=== PATIENT | female | born 1985 | race Two or more races ===

== ENCOUNTER → 2021-07-14 | Outpatient (CLI) | payer BC, MEDICAID, SELFPAY ==
[2021-07-17 09:01] LABS: HPV APTIMA, High Risk Negative (Negative)
== END | disposition home or self-care (01) ==
LOC: LABSPEC 11:37
PROVIDERS: Visit Provider Obstetrics & Gynecology
DX: Z12.4 Encounter for screening for malignant neoplasm of cervix (principal)
CPT/HCPCS: 87624; 88175; G0145

== ENCOUNTER → 2023-05-19 | Outpatient (CLI) | payer BC, MEDICAID, SELFPAY ==
[2023-05-19 12:35] LABS: Hematocrit 40.8 % (37-47); Hemoglobin 12.9 g/dL (12.0-15.0); Mean Corp Hgb Conc 31.6 g/dL (32-36); Mean Corpuscular Volume 88.5 fL (81-99); Mean Platelet Vol. 10.5 fl (6.2-12.0); Platelet Count 289 K/mm3 (150-450); RBC Distribution Width CV 12.9 % (11.6-14.6); RBC Distribution Width SD 41.9 fl (35.1-43.9); Red Blood Count 4.61 M/mm3 (4.2-5.4); White Blood Count 10.2 K/mm3 (4.4-11.0)
[2023-05-19 12:53] LABS: Progesterone Level 0.28 ng/mL (See Comment)
[2023-05-19 14:09] LABS: Estradiol 137.6 pg/mL; Follicle Stimulating Hormone 11.5 mIU/mL; Prolactin 4.6 ng/mL; T4 Free Direct 1.07 ng/dL (0.76-1.46); Thyroid Stim Hormone (TSH) 1.77 uIU/mL (0.358-3.74)
== END | disposition home or self-care (01) ==
PROVIDERS: Visit Provider Student in an Organized Health Care Education/Training Program
DX: N93.9 Abnormal uterine and vaginal bleeding, unspecified (principal)
CPT/HCPCS: 36415; 82670; 83001; 83002; 83036; 84144; 84146; 84439; 84443; 85027

== ENCOUNTER → 2023-10-05 | Outpatient (CLI) | payer BC, MEDICAID, SELFPAY ==
--- OUTSIDE RECORDS SUMMARY | 2023-10-05 17:42 | XMS RPT_ITS | CCD ---
Author Name Unknown Address [address] [place] [address] Organization [facility] Care Team Providers Care Pyridine Operator Name Role Phone NO FAMILY DOCTOR, NO FAMILY DOCTOR Unavailable Unavailable ESTEFANI AYOUB Unavailable Unavailable Nella PACE, Monae Primary Care Provider Monae Carmen MD Primary Care Provider Monae Carmen MD Primary Care Provider Monae Carmen MD Primary Care Provider OLDER, TEETEE Referring Unavailable GANTA, MONAE Primary Care Unavailable OLDER, TEETEE Attending Unavailable GANTA, MONAE Primary Care Unavailable GANTA, MONAE Primary Care Unavailable GANTA, MONAE Primary Care Unavailable JOSE DANIEL BESS Attending Unavailable GANTA, MONAE Primary Care Unavailable GANTA, MONAE Primary Care Unavailable OLDER, TEETEE Referring Unavailable GANTA, MONAE Primary Care Unavailable Medications Current Medications Medication Drug Class(es) Dates Sig (Normalized) Sig (Original) nitrofurantoin, macrocrystals 25 mg / nitrofurantoin, monohydrate 75 mg oral capsule (4 sources) Nitrofuran Antibacterial Start: 01-24-2023 End: 01-29-2023 take 1 capsule by mouth twice daily nitrofurantoin monohydrate and macrocrystal (MACROBID) 100 mg capsule Take 1 capsule by mouth twice daily for 5 days. 10 capsule 0 01/24/2023 01/29/2023 Active Completed/Discontinued Medications Medication Drug Class(es) Dates Sig (Normalized) Sig (Original) ferrous sulfate 325 mg oral tablet (7 sources) Start: 04-01-2022 End: 03-26-2023 take 1 tablet by mouth once daily at breakfast ferrous sulfate 325 mg (65 mg iron) tablet Take 1 tablet by mouth daily with breakfast. 30 tablet 5 03/26/2023 03/26/2023 Discontinued Problems Active Problems Problem Classification Problem Date Documented Da te Episodic/Chronic Conditions associated with dizziness or vertigo (3 sources) Dizziness and giddiness; Translations: [Vertigo] Onset: 09-29-2017 Episodic Conditions associated with dizziness or vertigo (1 source) Conditions associated with dizziness or vertigo Onset: 09-29-2017 Deficiency and other anemia (2 sources) Anemia; Translations: [Anemia, unspecified] Episodic Diabetes or abnormal glucose tolerance complicating ; childbirth; or the puerperium (11 sources) Pre-existing type 2 diabetes mellitus in ; Translations: [Pre-existing type 2 diabetes mellitus, in , third trimester] Onset: 07-28-2018 01-27-2019 Chronic Genitourinary symptoms and ill-defined conditions (1 source) Scalding pain on urination ; Translations: [Dysuria] Episodic Headache; including migraine (1 source) Headache; Translations: [Intractable headache, unspecified chronicity pattern, unspecified headache type] Episodic Menstrual disorders (2 sources) Missed period; Translations: [Irregular menstruation, unspecified] Onset: 03-29-2023 Chronic Neoplasms of unspecified nature or uncertain behavior (1 source) Neoplastic disease; Translations: [Neoplasm of unspecified behavior of bone, soft tissue, and skin] Episodic Other and unspecified benign neoplasm (1 source) Melanocytic nevus of skin ; Translations: [Melanocytic nevi, unspecified] Episodic Other connective tissue disease (2 sources) Pain in bilateral legs; Translations: [Pain in right leg] Episodic Other connective tissue disease (1 source) Tendinosis; Translations: [Other specified disorders of synovium and tendon, unspecified site] 04-01-2023 Episodic Other hematologic conditions (1 source) H/O: anemia - iron deficient; Translations: [Personal history of diseases of the blood and blood-forming organs and certain disorders involving the immune mechanism] Episodic Other lower respiratory disease (1 source) Snoring; Translations: [Snoring] Episodic Other nervous system disorders (1 source) Other chronic pain; Translations: [Chronic midline low back pain, unspecified whether sciatica present] Onset: 03-29-2023 Chronic Other non-traumatic joint disorders (2 sources) Hip pain; Translations: [Pain in right hip] Episodic Other nutritional; endocrine; and metabolic disorders (11 sources) Body mass index 40+ - severely obese; Translations: [Body mass index (BMI) 40.0-44.9, adult] Onset: 03-07-2019 03-07-2019 Chronic Residual codes; unclassified (1 source) Reduced libido; Translations: [Decreased libido] Episodic Spondylosis; intervertebral disc disorders; other back problems (1 source) Chronic low back pain; Translations: [Chronic midline low back pain, unspecified whether sciatica present] Episodic Unclassified (1 source) Oth related conditions, first trimester / O26.891(ICD-9) Onset: 09-29-2017 Unclassified (1 source) Complete or unsp spontaneous without complication / O03.9(ICD-9) Onset: 09-29-2017 Unclassified (1 source) 8 weeks gestation of / Z3A.08(ICD-9) Onset: 09-29-2017 Unclassified (1 source) Smoking (tobacco) complicating , first trimester / O99.331(ICD-9) Onset: 09-29-2017 Unclassified (1 source) Chronic midline low back pain, unspecified whether sciatica present; Translations: [Chronic midline low back pain, unspecified whether sciatica present] Onset: 03-29-2023 Urinary tract infections (2 sources) Acute cystitis; Translations: [Acute cystitis with hematuria] Episodic Past or Other Problems Problem Classification Problem Date Documented Da te Episodic/Chronic Diabetes mellitus without complication (3 sources) Prediabetes; Translations: [Prediabetes] Onset: 03-29-2023 Episodic Other connective tissue disease (1 source) Pain in right leg; Translations: [Bilateral leg pain] Onset: 03-29-2023 Episodic Other connective tissue disease (1 source) Pain in left leg; Translations: [Bilateral leg pain] Onset: 03-29-2023 Episodic Other hematologic conditions (1 source) Personal history of diseases of the blood and blood-forming organs and certain disorders involving the immune mechanism; Translations: [History of iron deficiency anemia] Onset: 03-29-2023 Episodic Other non-traumatic joint disorders (1 source) Pain in right hip; Translations: [Bilateral hip pain] Onset: 03-29-2023 Episodic Other non-traumatic joint disorders (1 source) Pain in left hip; Translations: [Bilateral hip pain] Onset: 03-29-2023 Episodic Other screening for suspected conditions (not mental disorders or infectious disease) (3 sources) Patient encounter status; Translations: [Encounter for screening for lipoid disorders] Onset: 03-29-2023 Episodic Residual codes; unclassified (1 source) Decreased libido; Translations: [Decreased libido] Onset: 03-29-2023 Episodic Unclassified (1 source) Oth related conditions, first trimester; Translations: [Oth related conditions, first trimester] Onset: 09-29-2017 Results Test Name Value Interpretation Reference Range Facil ity Vital Signs Date Time Vital Sign Value Performing Clinician Faci lity 03-26-2023 10:21-0400 Body weight 107.5 kg Teetee Older SOFTBALL PLAYER.SUPERVISOR HEAT TREATING Work Phone: [facility] 03-26-2023 10:21-0400 Diastolic blood pressure 82 mm[Hg] Teetee Older SOFTBALL PLAYER.SUPERVISOR HEAT TREATING Work Phone: [facility] 03-26-2023 10:21-0400 Heart rate 68 /min Teetee Older SOFTBALL PLAYER.SUPERVISOR HEAT TREATING Work Phone: [facility] 03-26-2023 10:21-0400 Respiratory rate 16 /min Teetee Older SOFTBALL PLAYER.SUPERVISOR HEAT TREATING Work Phone: [facility] 03-26-2023 10:21-0400 Systolic blood pressure 128 mm[Hg] Teetee Older SOFTBALL PLAYER.SUPERVISOR HEAT TREATING Work Phone: [facility] 01-24-2023 13:44-0400 Body temperature 98.01 [degF] Krislyn Aberegg PA Work Phone: [facility] 01-24-2023 13:44-0400 Body weight 108.41 kg Krislyn Aberegg PA Work Phone: [facility] 01-24-2023 13:44-0400 Diastolic blood pressure 68 mm[Hg] Krislyn Aberegg PA Work Phone: [facility] 01-24-2023 13:44-0400 Heart rate 80 /min Krislyn Aberegg PA Work Phone: [facility] 01-24-2023 13:44-0400 Respiratory rate 16 /min Krislyn Aberegg PA Work Phone: [facility] 01-24-2023 13:44-0400 SaO2% (BldA) [Mass fraction] 98 % Krislyn Aberegg PA Work Phone: [facility] 01-24-2023 13:44-0400 Systolic blood pressure 122 mm[Hg] Krislyn Aberegg PA Work Phone: [facility] 04-01-2022 11:05-0400 Body weight 103.87 kg Teetee Older SOFTBALL PLAYER.SUPERVISOR HEAT TREATING Work Phone: [facility] 04-01-2022 11:05-0400 Diastolic blood pressure 80 mm[Hg] Teetee Older SOFTBALL PLAYER.SUPERVISOR HEAT TREATING Work Phone: [facility] 04-01-2022 11:05-0400 Heart rate 68 /min Teetee Older SOFTBALL PLAYER.SUPERVISOR HEAT TREATING Work Phone: [facility] 04-01-2022 11:05-0400 Respiratory rate 16 /min Teetee Older SOFTBALL PLAYER.SUPERVISOR HEAT TREATING Work Phone: [facility] 04-01-2022 11:05-0400 Systolic blood pressure 120 mm[Hg] Teetee Older SOFTBALL PLAYER.SUPERVISOR HEAT TREATING Work Phone: [facility] 02-20-2022 09:20-0400 Body weight 104.78 kg Teetee Older SOFTBALL PLAYER.SUPERVISOR HEAT TREATING Work Phone: [facility] 02-20-2022 09:20-0400 Diastolic blood pressure 80 mm[Hg] Teetee Older SOFTBALL PLAYER.SUPERVISOR HEAT TREATING Work Phone: [facility] 02-20-2022 09:20-0400 Heart rate 68 /min Teetee Older SOFTBALL PLAYER.SUPERVISOR HEAT TREATING Work Phone: [facility] 02-20-2022 09:20-0400 Respiratory rate 16 /min Teetee Older SOFTBALL PLAYER.SUPERVISOR HEAT TREATING Work Phone: [facility] 02-20-2022 09:20-0400 Systolic blood pressure 128 mm[Hg] Teetee Older SOFTBALL PLAYER.SUPERVISOR HEAT TREATING Work Phone: [facility] 01-11-2022 11:18-0400 Body temperature 97.59 [degF] Karen Athy PA-C Work Phone: [facility] 01-11-2022 11:18-0400 Body weight 105.6 kg Karen Athy PA-C Work Phone: [facility] 01-11-2022 11:18-0400 Diastolic blood pressure 60 mm[Hg] Karen Athy PA-C Work Phone: [facility] 01-11-2022 11:18-0400 Heart rate 85 /min Karen Athy PA-C Work Phone: [facility] 01-11-2022 11:18-0400 Respiratory rate 16 /min Karen Athy PA-C Work Phone: [facility] 01-11-2022 11:18-0400 SaO2% (BldA) [Mass fraction] 99 % Karen Athy PA-C Work Phone: [facility] 01-11-2022 11:18-0400 Systolic blood pressure 118 mm[Hg] Karen Athy PA-C Work Phone: [facility] Encounters Encounter Date Encounter Type Care Provider Facility Start: 09-30-2023 End: 09-30-2023 ambulatory [facility] Facility:[facility] Start: 09-16-2023 End: 09-16-2023 ambulatory JOSE DANIEL BESS Facility:[facility] Start: 09-14-2023 End: 09-14-2023 ambulatory [facility] Facility:[facility] Start: 04-01-2023 Telephone encounter Teetee Narayan APRN.SUPERVISOR HEAT TREATING Work Phone: [facility] Procedures Date Procedure Procedure Detail Performing Clinician Start: 03-26-2023 Urine test visual color cmprsn meths Teetee Narayan SOFTBALL PLAYER.SUPERVISOR HEAT TREATING Work Phone: Start: 03-26-2023 Hemoglobin A1c/Hemoglobin.total in Blood Teetee Narayan SOFTBALL PLAYER.SUPERVISOR HEAT TREATING Work Phone: Start: 01-24-2023 Urnls dip stick/tabl et rgnt auto w/o microscopy Karen Ash PA-C Work Phone: Start: 09-29-2022 SKIN / NAIL BIOPSY Crista Hu PA-C Work Phone: Start: 02-20-2022 Adult depression screening assessment Teetee Helene HALEYSUPERVISOR HEAT TREATING Work Phone: Start: 01-11-2022 Urnls dip stick/tabl et rgnt auto w/o microscopy Karen Ash PA-C Work Phone: Start: 01-13-2021 Adult depression screening assessment Karen Ash PA-C Work Phone: Start: 01-25-2019 H/O: section Previous section Karen Ash PA-C Work Phone: Start: 01-25-2019 Antibody screen Plan of Treatment Date Care Activity Detail Author Start: 11-23-2028 Urine microalbumin profile DTA P,TDAP,TD (2 - Td or Tdap) [facility] Start: 03-26-2024 COVID-19 VACCINE (#1) COVID-19 VACCI NE (#1) [facility] Immunizations Immunization Date Immunization Notes Care Provider Ebony germain 01-27-2019 measles, mumps and rubella virus vaccine Karen Ash PA-C Work Phone: [facility] 11-23-2018 tetanus toxoid, redu bi diphtheria toxoid, and acellular pertussis vaccine, adsorbed Karen Ash PA-C Work Phone: [facility] 06-17-2018 influenza, injectabl e, quadrivalent, preservative free Karen Ash PA-C Work Phone: [facility] Payers Date Payer Category Payer Medicaid [id number] 2022 Unknown [id number] 2021 Unknown YAN HERBERT PPO [id number] 2021-Present [phone] [address] [place] [address] PPO [id number] 2021 Unknown YAN HERBERT PPO [id number] 2021-Present [phone] [address] [place] [address] PPO [id number] 2021 Unknown [id number] 2021 Unknown [id number] 2018 Medicaid [employer] [id number] 2018-Present [phone] [address] [place] [address] Medicaid [id number] 2018 Medicaid [id number] Social History Date Type Detail Facility Start: 03-08-2020 End: 01-24-2023 Tobacco smoking status NHIS Smokes tobacco daily [facility] End: 05-21-2018 History of tobacco use Cigarette Smoker [facility] Start: 03-08-2020 End: 03-24-2023 Cigarettes smoked current (pack per day) - Reported 5 [facility] Start: 03-08-2020 End: 01-24-2023 Tobacco use and exposure Smokeless tobacco non-user [facility] Start: 01-11-2022 End: 01-24-2023 Alcohol intake Current non-drinker of alcohol (finding) [facility] Start: 01-13-2021 End: 03-25-2023 History SDOH Alcohol Frequency 2 [facility] Start: 01-13-2021 End: 03-25-2023 History SDOH Alcohol Binge 1 [facility] Start: 01-13-2021 End: 03-25-2023 History SDOH Social Connections Phone 5 [facility] Start: 01-13-2021 End: 03-25-2023 History SDOH Social Connections Living 3 [facility] Start: 01-13-2021 End: 03-25-2023 History SDOH Physical Activity MPS 6 [facility] Start: 01-13-2021 End: 03-25-2023 History SDOH Financial 4 [facility] Start: 01-13-2021 Education 21 [facility] Start: 03-08-2020 End: 01-24-2023 Tobacco Comment 0.5 [facility] Start: 1985 Sex Assigned At Female [facility] Start: 03-30-2022 History SDOH Alcohol Std Drinks 98 [facility] Start: 03-24-2023 End: 03-26-2023 Social connection and isolation panel [facility] Do you belong to any clubs or organizations such as roman catholic groups, unions, fraternal or athletic groups, or school groups? No [facility] Are you now , , , , never or living with a partner? [facility] How often to you hav e a drink containing alcohol? Monthly or less [facility] How many standard dr inks containing alcohol do you have on a typical day? 3 or 4 [facility] How often do you hav e 6 or more drinks on 1 occasion? Never [facility] How hard is it for y ou to pay for the very basics like food, housing, medical care, and heating Not very hard [facility] Adult Depression Screening Assessment 0 [facility] Work Phone: Do you feel stress - tense, restless, nervous, or anxious, or unable to sleep at night because your mind is troubled all the time - these days [OSQ] Only a little [facility] (I/We) worried wheth er (my/our) food would run out before (I/we) got money to buy more. Never true [facility] The food that (I/we) bought just didn't last, and (I/we) didn't have money to get more. Sometimes true [facility] Start: 01-13-2021 Gender identity Identifies as female gender (finding) [facility] Start: 01-13-2021 Sexual orientation Heterosexual (finding) [facility] Clinical Notes 10-25-2018 to 09-30-2023 Telephone Encounter - Teetee Narayan APRN.SUPERVISOR HEAT TREATING - 04/01/2023 3:36 PM EDTTelephone Encounter - Raquel Bunn Ma - 04/01/2023 3:32 PM EDTTelephone Encounter - Teetee Narayan APRN.CNP - 04/01/2023 3:25 PM EDT Note Date & Type Note Facility 09-30-2023 Note HNO ID: [id number] Author: REN SHABAZZ APRN.CALIN Service: ? Author Type: Nurse Practitioner Type: Progress Notes Filed: 09/30/2023 09:51 Note Text: This note was created using NoteWriter. Subjective Quin Patiño is a 38 year old female. 38 year old female with no PMH presents for illness. Acute onset 1 1/2 weeks ago Seen here 09/14/23 Negative strep Placed on Augmentin F/U on 09/16 with MANAGER CHINESE - Shahriar Endorses she felt better Pain resolved Endorses 2 days ago sx returned +sore throat +right ear pain Denies accompanying URI sx + cough, feels like there is something there and can't get anything up +pain and aches at baseline Denies fever or chills Denies N/V/D Denies skin rash or lesions. Has used Tylenol +tobacco smoker The history is provided by the patient. No government clerk was used. Sore Throat This is a new problem. The current episode started 1 to 4 weeks ago. The problem has been unchanged. There has been no fever. The pain is at a severity of 5/10. The pain is moderate. Associated symptoms include ear pain and headaches. Pertinent negatives include no abdominal pain, congestion, coughing, diarrhea, drooling, ear discharge, hoarse voice, plugged ear sensation, neck pain, shortness of breath, stridor, swollen glands, trouble swallowing or vomiting. She has had no exposure to strep or mono. She has tried nothing for the symptoms. The treatment provided no relief. PAST MEDICAL HISTORY Diagnosis Date Anemia Diabetes, gestational WITH 3 PREVIOUS PREGNANCIES PAST SURGICAL HISTORY Procedure Laterality Date DEL W/ ANTE/POST CARE 2006 DEL W/ ANTE/POST CARE 2008 DEL W/ ANTE/POST CARE DEL W/ ANTE/POST CARE 01/25/2019 DILATION AND CURETTAGE DXAND/THER NONOBSTETRIC 03/2013 Dilation AND curettage EXTRACTION, ERUPTED TOOTH OR EXPOSED ROOT (ELEVATION AND/OR FORCEPS REMOVAL) 2012 TUBAL LIGATION, 01/25/2019 ALLERGIES Patient has no known allergies. MEDICATIONS predniSONE (DELTASONE) 10 mg tablet Take 4 tabs daily for 3 days, then 2 tabs daily for 3 days, then 1 tab daily for 3 days with food. famotidine (PEPCID) 20 mg tablet Take 1 tablet by mouth at bedtime as needed. fluticasone (FLONASE) 50 mcg/actuation nasal spray Use 2 Sprays in each nostril once daily. Rinse mouth after use. FAMILY HISTORY Problem Relation Age of Onset Diabetes Father Cancer Sister FILTER SCREEN CLEANER 36 Diabetes Maternal Grandfather Hypertension Maternal Grandfather Colon Cancer Other diagnosed in 30-40s. unclear on type of cancer Social History Tobacco Use Smoking status: Every Day Packs/day: 5 Types: Cigarettes Last attempt to quit: 05/21/2018 Years since quittin.3 Smokeless tobacco: Never Tobacco comments: 0.5 Vaping Use Vaping Use: Never used Substance Use Topics Alcohol use: No Drug use: No Review of Systems Constitutional: Negative for activity change and appetite change. HENT: Positive for ear pain and sore throat. Negative for congestion, drooling, ear discharge, hoarse voice, sinus pressure, sinus pain and trouble swallowing. Eyes: Negative for photophobia, pain, discharge, redness, itching and visual disturbance. Respiratory: Negative for apnea, cough, chest tightness, shortness of breath and stridor. Cardiovascular: Negative for chest pain, palpitations and leg swelling. Gastrointestinal: Negative for abdominal pain, diarrhea, nausea and vomiting. Musculoskeletal: Negative for arthralgias, back pain and neck pain. Skin: Negative for color change, pallor, rash and wound. Allergic/Immunologic: Negative for environmental allergies, food allergies and immunocompromised state. Neurological: Positive for headaches. Negative for dizziness and facial asymmetry. Hematological: Negative for adenopathy. Does not bruise/bleed easily. Psychiatric/Behavioral: Negative for agitation and behavioral problems. Objective BP 141/95 Pulse 75 Temp 36.5 ?C (97.7 ?F) Resp 18 Wt 104.3 kg (230 lb) LMP 06/28/2021 SpO2 99% BMI 37.12 kg/m? Physical Exam Vitals and nursing note reviewed. Constitutional: General: She is not in acute distress. Appearance: Normal appearance. She is normal weight. She is not ill-appearing, toxic-appearing or diaphoretic. HENT: Head: Normocephalic and atraumatic. Right Ear: Ear canal and external ear normal. Left Ear: Ear canal and external ear normal. Nose: Nose normal. No congestion or rhinorrhea. Mouth/Throat: Mouth: Mucous membranes are moist. Pharynx: Posterior oropharyngeal erythema (1 + enlarged tonsils bilaterally. Uvula midline. Handling secretions) present. No oropharyngeal exudate. Eyes: General: Right eye: No discharge. Left eye: No discharge. Extraocular Movements: Extraocular movements intact. Conjunctiva/sclera: Conjunctivae normal. Pupils: Pupils are equal, round, and reactive to light. Cardiovascular: R (more content not included)... [facility] 09-16-2023 Note HNO ID: [id number] Author: Jose Daniel Bess APRN.SUPERVISOR HEAT TREATING Service: ? Author Type: Nurse Practitioner Type: Progress Notes Filed: 09/16/2023 8:30 AM Note Text: Chief Complaint Patient presents with: Follow Up: 09/14 pharyngitis, reports swallowing is painful HPI Quin Patiño is a 38 year old female who presents here today for Above Complaints. Quin is an established patient of Dr. Nella MD. She is a new patient to me today. Concerns today... [facility] care follow-up--- Was seen in express care on 09/14/23 d/t sore throat. Strep test was negative. D/t one seded swelling and exudates, pt was empirically treated with Augmentin x 10 days and prednisone burst. Told to have close follow-up with PCP team to assess for abscess. Today in office... Pt reports swelling is greatly improved. Pt is feeling better each day. Pt denies any voice changes, hoarseness, or SOB/difficulty swallowing or breathing. Here today to check throat for abscess. Pt does report mild non-productive cough and very mild congestion with post-nasal drip. All symptoms are improving. Past medical history, appointments, medications, allergies reviewed. Previous Medical History PAST MEDICAL HISTORY Diagnosis Date Anemia Diabetes, gestational WITH 3 PREVIOUS PREGNANCIES Previous Surgical History PAST SURGICAL HISTORY Procedure Laterality Date DEL W/ ANTE/POST CARE 2006 DEL W/ ANTE/POST CARE 2008 DEL W/ ANTE/POST CARE DEL W/ ANTE/POST CARE 01/25/2019 DILATION AND CURETTAGE DXAND/THER NONOBSTETRIC 03/2013 Dilation AND curettage EXTRACTION, ERUPTED TOOTH OR EXPOSED ROOT (ELEVATION AND/OR FORCEPS REMOVAL) 2012 TUBAL LIGATION, 01/25/2019 Family History FAMILY HISTORY Problem Relation Age of Onset Diabetes Father Cancer Sister FILTER SCREEN CLEANER 36 Diabetes Maternal Grandfather Hypertension Maternal Grandfather Colon Cancer Other diagnosed in 30-40s. unclear on type of cancer Patient Allergies ALLERGIES No Known Allergies Current Medications Current Outpatient Medications on File Prior to Visit Medication Sig amoxicillin-clavulanate potassium (AUGMENTIN) 875-125 mg per tablet Take 1 tablet by mouth two times a day for 10 days. predniSONE (DELTASONE) 20 mg tablet Take 2 tablets by mouth once daily for 5 days. No current facility-administered medications on file prior to visit. Social History Social History Tobacco Use Smoking status: Every Day Packs/day: 5 Types: Cigarettes Last attempt to quit: 05/21/2018 Years since quittin.3 Smokeless tobacco: Never Tobacco comments: 0.5 Vaping Use Vaping Use: Never used Substance Use Topics Alcohol use: No Drug use: No REVIEW OF SYSTEMS: as above Reviewed relevant PMHx, PSHx, Social Hx, current medications and allergies. Review of Symptoms REVIEW OF SYSTEMS See HPI. EXAM: BP 144/86 (BP Site: Left Arm, BP Position: Sitting, BP Cuff Size: Regular Adult) Pulse 74 Temp 36.3 ?C (97.3 ?F) Resp 16 Wt 105.8 kg (233 lb 3.2 oz) LMP 06/28/2021 SpO2 99% BMI 37.64 kg/m? General Appearance: Well appearing, alert, in no acute distress, well-hydrated, well nourished.. Skin: Skin color, texture, turgor normal, no suspicious rashes or lesions. Eyes: Anicteric sclera. Pupils are equally round and reactive to light. Extraocular movements are intact. . Nose/Sinuses: Nares normal, septum midline, mucosa normal, no drainage or sinus tenderness. Oropharynx: Lips, mucosa, and tongue normal, teeth and gums normal, oropharynx normal and Positive findings: mild oropharyngeal erythema, tonsillar hypertrophy 2+, exudates present on L tonsil. Lungs: Lungs clear to auscultation. No wheezing, rhonchi, rales.. Heart: RRR without murmur, gallop, or rubs. No ectopy. Lymph Nodes: No cervical lymphadenopathy and No supraclavicular lymphadenopathy. Health Maintenance List Influenza Vaccine(1) due on 05/21/2023 Hepatitis B Vaccine(1 of 3 - 3-dose series) due on 03/26/2024 Pap Testing due on 03/26/2024 HPV Testing due on 03/26/2024 Covid-19 Vaccine(1) due on 03/26/2024 Pneumococcal Vaccine(1 of 2 - PCV) due on 03/26/2024 DTaP,Tdap,Td Vaccine(2 - Td or Tdap) due on 11/23/2028 Depression Assessment Completed Hepatitis C Screening Completed HIV Screening Completed HPV Vaccine Aged Out ASSESSMENT/PLAN: 1. Exudative pharyngitis - ICD9: 462, ICD10: J02.9 Agree with express care plan of care. Continue with Augmentin and prednisone burst. Symptoms improving. No abscess seen on physical exam. Pt aware of red flag symptoms to seek attention at ER for. Prescription instructions reviewed with patient as applicable. Potential red flag symptoms discussed with the patient. Reviewed appropriate action plan to take if red flag symptoms occur. Patient agreeable to treatment plan. Jose Daniel Bess APRN.SUPERVISOR HE[employer] [address] [place] [address] (more content not included)... [facility] 09-14-2023 Note HNO ID: [id number] Author: Karen Ash PA-C Service: ? Author Type: Physician Agency Sales Representative Type: Progress Notes Filed: 09/14/2023 12:03 PM Note Text: This note was created using NoteWriter. Subjective Quin Patiño is a 38 year old female. HPI Patient presents with a chief complaint of sore throat over the past 3 days. She has noticed swollen lymph nodes on the left side of her neck as well. No fever. She has had some body aches. No runny nose. No cough. No vomiting or diarrhea. Denies sick contacts. She is a smoker. Review of Systems Constitutional: Positive for fatigue. Negative for fever. HENT: Positive for sore throat. Negative for congestion, ear pain, rhinorrhea, sinus pressure and sinus pain. Respiratory: Negative for cough. Cardiovascular: Negative. Gastrointestinal: Negative. Musculoskeletal: Positive for myalgias. Neurological: Negative for headaches. All other systems reviewed and are negative. PAST MEDICAL HISTORY Diagnosis Date Anemia Diabetes, gestational WITH 3 PREVIOUS PREGNANCIES Current Outpatient Medications Medication Sig Dispense Refill amoxicillin-clavulanate potassium (AUGMENTIN) 875-125 mg per tablet Take 1 tablet by mouth two times a day for 10 days. 20 tablet 0 predniSONE (DELTASONE) 20 mg tablet Take 2 tablets by mouth once daily for 5 days. 10 tablet 0 naproxen (NAPROSYN) 500 mg tablet Take 1 tablet by mouth twice daily as needed (for pain/inflammation). Take with food. (Patient not taking: Reported on 09/14/2023) 15 tablet 1 metFORMIN ER (GLUCOPHAGE XR) 500 mg 24 hr tablet Take 1 tablet by mouth daily with breakfast. (Patient not taking: Reported on 09/14/2023) 30 tablet 11 meclizine (ANTIVERT) 25 mg tab Take 1 tablet by mouth every 6 hours as needed (dizziness). (Patient not taking: Reported on 09/29/2022) 20 tablet 0 fluticasone (FLONASE) 50 mcg/actuation nasal spray Use 2 Sprays in each nostril once daily. Rinse mouth after use. (Patient not taking: Reported on 01/11/2022 ) 1 Each 0 No current facility-administered medications for this visit. PAST SURGICAL HISTORY Procedure Laterality Date DEL W/ ANTE/POST CARE 2006 DEL W/ ANTE/POST CARE 2008 DEL W/ ANTE/POST CARE DEL W/ ANTE/POST CARE 01/25/2019 DILATION AND CURETTAGE DXAND/THER NONOBSTETRIC 03/2013 Dilation AND curettage EXTRACTION, ERUPTED TOOTH OR EXPOSED ROOT (ELEVATION AND/OR FORCEPS REMOVAL) 2012 TUBAL LIGATION, 01/25/2019 FAMILY HISTORY Problem Relation Age of Onset Diabetes Father Cancer Sister [employer]ER 36 Diabetes Maternal Grandfather Hypertension Maternal Grandfather Colon Cancer Other diagnosed in 30-40s. unclear on type of cancer Social History Tobacco Use Smoking status: Every Day Packs/day: 5 Types: Cigarettes Last attempt to quit: 05/21/2018 Years since quittin.3 Smokeless tobacco: Never Tobacco comments: 0.5 Vaping Use Vaping Use: Never used Substance Use Topics Alcohol use: No Drug use: No Objective BP 118/72 Pulse 77 Temp 36.2 ?C (97.2 ?F) Resp 16 Wt 104.4 kg (230 lb 3.2 oz) LMP 06/28/2021 SpO2 98% BMI 37.16 kg/m? Physical Exam Vitals reviewed. Constitutional: Appearance: Normal appearance. HENT: Head: Normocephalic and atraumatic. Right Ear: Tympanic membrane, ear canal and external ear normal. Left Ear: Tympanic membrane, ear canal and external ear normal. Nose: Nose normal. Mouth/Throat: Mouth: Mucous membranes are moist. Pharynx: Pharyngeal swelling, oropharyngeal exudate and posterior oropharyngeal erythema present. Tonsils: 0 on the right. 2+ on the left. Comments: Patient has swelling with erythema and exudate of the left tonsil. Right tonsil is unremarkable. Do not see an abscess specifically of the left tonsil. There is some left tonsillar adenopathy noted in the palpation of her neck. No hot potato voice. Handling secretions normally. Cardiovascular: Rate and Rhythm: Normal rate and regular rhythm. Heart sounds: Normal heart sounds. Pulmonary: Effort: Pulmonary effort is normal. Breath sounds: Normal breath sounds. Neurological: Mental Status: She is alert. Assessment and Plan ASSESSMENT/PLAN: 1. Exudative pharyngitis - ICD9: 462, ICD10: J02.9 The patient strep was run 3 times with the 2 first times being invalid. The third time did come up as negative however with the one-sided swelling and exudates and sore throat really being the only symptom I will cover her empirically with Augmentin. I did not see an abscess today on exam however discussed with her if swelling worsens or she has voice changes, or worsening symptoms needs seen in the ER. Will have her have close follow-up with PCP in the next few days. - STREP A MOLECULAR (POC) Karen Ash PA-C [facility] 04-01-2023 Miscellaneous Notes Order placed. Please assist with scheduling. Thank you Teetee Narayan APRN.SUPERVISOR HE[employer]REATING Patient notified and requesting referral to Ortho. 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 If the naproxen is not helping the pain, then I would like her to see orthopedics. Thank you Teetee Narayan APRN.CNP documented in this encounter [facility] 03-29-2023 Note HNO ID: [id number] Author: RT Felisa(R) Service: Radiology Author Type: Technologist Type: Progress Notes Filed: 03/29/2023 8:50 AM Note Text: Radiology Service Progress Note PATIENT NAME: Quin Patiño DATE OF SERVICE: March 29, 2023 TIME: 8:33 AM PATIENT IDENTITY VERIFICATION COMPLETED USING TWO (2) IDENTIFIERS: Name and Date of confirmed by patient verbally. FALL SCREENING: Has the patient had 2 falls in the last year or 1 fall with injury or currently using an Ambulatory Assistive Device (Walker, Cane, Wheelchair, Crutches, etc.)? No PATIENT GENDER DATA: Female. status: : No status: NO. PATIENT RELEVANT IMPLANT DATA REVIEWED: Yes RADIOLOGY DEPARTMENT: General X-ray: Exam(s) Completed: Spine X-Ray(s): Lumbar AP / LAT / L5-S1 Pelvis X-Ray: Pelvis with Hip Bilateral PERIPHERAL IV DATA: Not applicable SIGNED BY: RT Felisa(R) March 29, 2023 8:[address] [facility] 03-26-2023 Note HNO ID: [id number] Author: Teetee Narayan APRN.CNP Service: ? Author Type: Nurse Practitioner Type: Progress Notes Filed: 03/26/2023 2:55 PM Note Text: CC: Patient presents with: Recheck: Body aches, stiffness x 9 months HPI Quin Patiño is a 38 year old female who presents today for routine follow up. Prediabetes: Ms. Patiño denies excessive thirst or increased frequency of urination, chest pain or dyspnea , numbness, tingling or pain in extremities, new or unusual visual symptoms, low sugar/hypoglycemic reactions, weight loss/gain, lightheadedness/dizziness, and bowel changes/loose stools. Follows a diabetic diet generally not very much. Patient hs not taken her metformin for the past few weeks as she has felt shaky and nauseated indicating blood sugar is low but has not checked it. She reports checking her glucose on a infrequent to not at all basis schedule . Patient's last HgA1C was Hemoglobin A1C (%) Date Value 02/23/2022 6.0 01/17/2021 6.1 Hemoglobin A1C (POCT) (%) Date Value 08/01/2018 6.1 ) History of iron deficiency but not taken her iron in weeks. Denies any abnormal bleeding, dark sticky stools, or blood in stools. Reports pain since April of last year. States it is to her bilateral hips, bilateral thighs and lower back. Pain is a severe ache that started suddenly and large amount of stiffness. Pain is same all day long but stiffness is worse with movement. Pain does not radiate and sometimes skin can be tender. Has not taken anything for pain but is unable to easily be active and is affecting her day to day life. Denies any numbness tingling, weakness, known injury, loss of control bowel/bladder, saddle anesthesia, edema, or fever. Also reports at end of visit she has had decreased libido and decrease in periods actually not having one last month. Did have tubes tied in the past. REVIEW OF SYSTEMS General: no fevers, no chills, no night sweats, no recurrent infections, no change in appetite, no change in energy, and no significant changes in weight Respiratory: no cough, no wheezing, no shortness of breath, no hemoptysis Cardiovascular: no chest pain, no chest pressure, no palpitations, and no swelling GI: No nausea, vomiting, or diarrhea : No history of dysuria, frequency or incontinence Skin: Negative for lesions, rash, and itching Endocrine: no fatigue, no cold intolerance, no heat intolerance, no polyuria, no polyphagia, and no polydipsia Neurologic: No headache, weakness, numbness, tingling, dizziness, memory loss, syncope. PAST MEDICAL HISTORY Diagnosis Date Anemia Diabetes, gestational WITH 3 PREVIOUS PREGNANCIES PAST SURGICAL HISTORY Procedure Laterality Date DEL W/ ANTE/POST CARE 2006 DEL W/ ANTE/POST CARE 2008 DEL W/ ANTE/POST CARE DEL W/ ANTE/POST CARE 01/25/2019 DILATION AND CURETTAGE DXAND/THER NONOBSTETRIC 03/2013 Dilation AND curettage EXTRACTION, ERUPTED TOOTH OR EXPOSED ROOT (ELEVATION AND/OR FORCEPS REMOVAL) 2012 TUBAL LIGATION, 01/25/2019 ALLERGIES Patient has no known allergies. MEDICATIONS ferrous sulfate 325 mg (65 mg iron) tablet Take 1 tablet by mouth daily with breakfast. metFORMIN ER (GLUCOPHAGE XR) 500 mg 24 hr tablet Take 1 tablet by mouth daily with breakfast. meclizine (ANTIVERT) 25 mg tab Take 1 tablet by mouth every 6 hours as needed (dizziness). (Patient not taking: Reported on 09/29/2022) fluticasone (FLONASE) 50 mcg/actuation nasal spray Use 2 Sprays in each nostril once daily. Rinse mouth after use. (Patient not taking: Reported on 01/11/2022 ) FAMILY HISTORY Problem Relation Age of Onset Diabetes Father Cancer Sister [employer]ER 36 Diabetes Maternal Grandfather Hypertension Maternal Grandfather Colon Cancer Other diagnosed in 30-40s. unclear on type of cancer Social History Tobacco Use Smoking status: Every Day Packs/day: 5.00 Types: Cigarettes Last attempt to quit: 05/21/2018 Years since quittin.8 Smokeless tobacco: Never Tobacco comments: 0.5 Vaping Use Vaping Use: Never used Substance Use Topics Alcohol use: No Drug use: No PHYSICAL EXAM BP 128/82 Pulse 68 Resp 16 Wt 107.5 kg (237 lb) LMP 06/28/2021 BMI 38.25 kg/m? General Appearance: well appearing, in no acute distress, alert Skin: Skin color, texture, turgor normal for age; Eyes: conjunctiva pink and moist, no icterus, sclera white, non-injected Neck: Thyroid normal size and symmetric without palpable nodules, Neck supple, No adenopathy Lymph nodes: No cervical lymphadenopathy and No supraclavicular lymphadenopathy Lungs: Lungs clear to auscultation. No wheezing, rhonchi, rales. Heart: RRR without murmur, gallop, or rubs. No ectopy Abdomen: Abdomen soft, non-tender. Bowel sounds normal. No masses, organomegaly, Negative CVA tenderness Back: normal to inspection. No tenderness with palpation of spine or with pal (more content not included)... [facility] 03-26-2023 History of Presen t illness Narrative CC: Patient presents with: Recheck: Body aches, stiffness x 9 months HPI Quin Patiño is a 38 year old female who presents today for routine follow up. Prediabetes: Ms. Patiño denies excessive thirst or increased frequency of urination, chest pain or dyspnea , numbness, tingling or pain in extremities, new or unusual visual symptoms, low sugar/hypoglycemic reactions, weight loss/gain, lightheadedness/dizziness, and bowel changes/loose stools. Follows a diabetic diet generally not very much. Patient hs not taken her metformin for the past few weeks as she has felt shaky and nauseated indicating blood sugar is low but has not checked it. She reports checking her glucose on a infrequent to not at all basis schedule . Patient's last HgA1C was Hemoglobin A1C (%) Date Value 02/23/2022 6.0 01/17/2021 6.1 Hemoglobin A1C (POCT) (%) Date Value 08/01/2018 6.1 ) History of iron deficiency but not taken her iron in weeks. Denies any abnormal bleeding, dark sticky stools, or blood in stools. Reports pain since April of last year. States it is to her bilateral hips, bilateral thighs and lower back. Pain is a severe ache that started suddenly and large amount of stiffness. Pain is same all day long but stiffness is worse with movement. Pain does not radiate and sometimes skin can be tender. Has not taken anything for pain but is unable to easily be active and is affecting her day to day life. Denies any numbness tingling, weakness, known injury, loss of control bowel/bladder, saddle anesthesia, edema, or fever. Also reports at end of visit she has had decreased libido and decrease in periods actually not having one last month. Did have tubes tied in the past. REVIEW OF SYSTEMS General: no fevers, no chills, no night sweats, no recurrent infections, no change in appetite, no change in energy, and no significant changes in weight Respiratory: no cough, no wheezing, no shortness of breath, no hemoptysis Cardiovascular: no chest pain, no chest pressure, no palpitations, and no swelling GI: No nausea, vomiting, or diarrhea : No history of dysuria, frequency or incontinence Skin: Negative for lesions, rash, and itching Endocrine: no fatigue, no cold intolerance, no heat intolerance, no polyuria, no polyphagia, and no polydipsia Neurologic: No headache, weakness, numbness, tingling, dizziness, memory loss, syncope. PAST MEDICAL HISTORY Diagnosis Date Anemia Diabetes, gestational WITH 3 PREVIOUS PREGNANCIES PAST SURGICAL HISTORY Procedure Laterality Date DEL W/ ANTE/POST CARE 2006 DEL W/ ANTE/POST CARE 2008 DEL W/ ANTE/POST CARE DEL W/ ANTE/POST CARE 01/25/2019 DILATION & CURETTAGE DX&/THER NONOBSTETRIC 03/2013 Dilation & curettage EXTRACTION, ERUPTED TOOTH OR EXPOSED ROOT (ELEVATION AND/OR FORCEPS REMOVAL) 2012 TUBAL LIGATION, 01/25/2019 ALLERGIES Patient has no known allergies. MEDICATIONS ferrous sulfate 325 mg (65 mg iron) tablet Take 1 tablet by mouth daily with breakfast. metFORMIN ER (GLUCOPHAGE XR) 500 mg 24 hr tablet Take 1 tablet by mouth daily with breakfast. meclizine (ANTIVERT) 25 mg tab Take 1 tablet by mouth every 6 hours as needed (dizziness). (Patient not taking: Reported on 09/29/2022) fluticasone (FLONASE) 50 mcg/actuation nasal spray Use 2 Sprays in each nostril once daily. Rinse mouth after use. (Patient not taking: Reported on 01/11/2022 ) FAMILY HISTORY Problem Relation Age of Onset Diabetes Father Cancer Sister [employer] S[employer]ER 36 Diabetes Maternal Grandfather Hypertension Maternal Grandfather Colon Cancer Other diagnosed in 30-40s. unclear on type of cancer Social History Tobacco Use Smoking status: Every Day Packs/day: 5.00 Types: Cigarettes Last attempt to quit: 05/21/2018 Years since quittin.8 Smokeless tobacco: Never Tobacco comments: 0.5 Vaping Use Vaping Use: Never used Substance Use Topics Alcohol use: No Drug use: No PHYSICAL EXAM BP 128/82 Pulse 68 Resp 16 Wt 107.5 kg (237 lb) LMP 06/28/2021 BMI 38.25 kg/m General Appearance: well appearing, in no acute distress, alert Skin: Skin color, texture, turgor normal for age; Eyes: conjunctiva pink and moist, no icterus, sclera white, non-injected Neck: Thyroid normal size and symmetric without palpable nodules, Neck supple, No adenopathy Lymph nodes: No cervical lymphadenopathy and No supraclavicular lymphadenopathy Lungs: Lungs clear to auscultation. No wheezing, rhonchi, rales. Heart: RRR without murmur, gallop, or rubs. No ectopy Abdomen: Abdomen soft, non-tender. Bowel sounds normal. No masses, organomegaly, Negative CVA tenderness Back: normal to inspection. No tenderness with palpation of spine or with palpation of paraspinal muscles. ROM: full. Reflexes:2+. Muscle strength: 5/5 lower, bilaterally. SLR: Supine - Right Negative, Left Negative Seated - Right Negative, Left Negative. Extremities: No deformities, edema, skin discoloration, clubbing or cyanosis. Good capillary refill. Neurological: Gait normal. Reflexes normal and symmetric. Sensation grossly intact. Health maintenance reviewed with patient: HEPATITIS B(1 of 3 - 3-dose series) Never done COVID-19 VACCINE(1) Never done PNEUMOCOCCAL(1 - PCV) Never done DEPRESSION ASSESSMENT Never done PAP TESTING due on 02/05/2023 HPV TESTING due on 02/05/2023 INFLUENZA(1) due on 05/21/2023 DTAP,TDAP,TD(2 - Td or Tdap) due on 11/23/2028 HEPATITIS C SCREENING Completed HIV SCREENING Completed DATA REVIEWED: No new labs ASSESSMENT/PLAN: 1. Prediabetes - ICD9: 790.29, ICD10: R73.03 (primary diagnosis) - controlled with diet and exercise - follow up in 3 months to re-evaluate withoiut metformin for full 3 months - HEMOGLOBIN A1C (POC) - CBC + DIFF - COMP METABOLIC PANEL 2. History of iron deficiency anemia - ICD9: V12.3, ICD10: Z86.2 - will check to see if supplement is necessary - CBC + DIFF - IRON + TIBC - FERRITIN BLD 3. Bilateral hip pain - ICD9: 719.45, ICD10: M25.551, M25.552 - no concerns on assessment. Sciatica versus inflammatory process Symptomatic treatment with: Also discussed non-medication measures with ice, heat, stretching; see patient instructions - naproxen as ordered - go to ER for severe pain, weakness, numbness, saddle anesthesia, loss of bladder/bowel control, or any other urgent concern - C-REACTIVE PROTEIN (CRP) - SED RATE WESTERGREN - MARKO BY IFA SCREEN - RHEUMATOID FACTOR BL - XR LUMBAR GENERAL 3V AP/LAT/L5-S1 - XR HIP BILATERAL 5V PEL/AP/LAT EACH HIP 4. Bilateral leg pain - ICD9: 729.5, ICD10: M79.604, M79.605 As above - C-REACTIVE PROTEIN (CRP) - SED RATE WESTERGREN - MARKO BY IFA SCREEN - RHEUMATOID FACTOR BL - XR LUMBAR GENERAL 3V AP/LAT/L5-S1 - XR HIP BILATERAL 5V PEL/AP/LAT EACH HIP 5. Chronic midline low back pain, unspecified whether sciatica present - ICD9: 724.2, 338.29, ICD10: M54.50, G89.29 See #3 - XR LUMBAR GENERAL 3V AP/LAT/L5-S1 - XR HIP BILATERAL 5V PEL/AP/LAT EACH HIP 6. Missed menses - ICD9: 626.4, ICD10: N92.6 - not fully discussed - HCG QUAL UR B/O - negative - TSH BLD - T3 BLD - T4 FREE/FREE THYROX 7. Decreased libido - ICD9: 799.81, ICD10: R68.82 As above - TSH BLD - T3 BLD - T4 FREE/FREE THYROX 8. Lipid screening - ICD9: V77.91, ICD10: Z13.220 - COMP METABOLIC PANEL - LIPID PANEL BASIC Prescription instructions reviewed with patient as applicable. Potential red flag symptoms discussed with the patient. Reviewed appropriate action plan to take if red flag symptoms occur. Patient agreeable to treatment plan. Teetee Narayan APRN.CNP documented in this encounter [facility] 01-26-2023 Miscellaneous Notes Phone call placed, patient advised (see prior provider encounter) Patient verbalized understanding, agreed with plan of care. Nyla Rocha LPN Left message for patient to return call. Mary Banerjee Patient's urine culture did not grow significant amount of bacteria. Patient is on Macrobid which should be helping. Make sure symptoms are improving. If symptoms or not improving patient needs to follow-up with primary care. documented in this encounter [facility] 01-24-2023 Note HNO ID: [id number] Author: ANNMARIE Griffith Service: ? Author Type: Physician Agency Sales Representative Type: Progress Notes Filed: 01/24/2023 1:56 PM Note Text: This note was created using [employer]. Subjective Qiun Patiño is a 37 year old female. HPI 37-year-old female presents for UTI symptoms. Patient states she had frequency, urgency and pressure starting this morning. She had a little bit of dysuria. No blood in the urine that she has noticed. Her LMP was about 3 weeks ago. No concern for . No vomiting, back pain, abdominal pain or fevers. PAST MEDICAL HISTORY Diagnosis Date Anemia Diabetes, gestational WITH 3 PREVIOUS PREGNANCIES PAST SURGICAL HISTORY Procedure Laterality Date DEL W/ ANTE/POST CARE 2006 DEL W/ ANTE/POST CARE 2008 DEL W/ ANTE/POST CARE DEL W/ ANTE/POST CARE 01/25/2019 DILATION AND CURETTAGE DXAND/THER NONOBSTETRIC 03/2013 Dilation AND curettage EXTRACTION, ERUPTED TOOTH OR EXPOSED ROOT (ELEVATION AND/OR FORCEPS REMOVAL) 2012 TUBAL LIGATION, 01/25/2019 ALLERGIES Patient has no known allergies. MEDICATIONS ferrous sulfate 325 mg (65 mg iron) tablet Take 1 tablet by mouth daily with breakfast. metFORMIN ER (GLUCOPHAGE XR) 500 mg 24 hr tablet Take 1 tablet by mouth daily with breakfast. nitrofurantoin monohydrate and macrocrystal (MACROBID) 100 mg capsule Take 1 capsule by mouth twice daily for 5 days. meclizine (ANTIVERT) 25 mg tab Take 1 tablet by mouth every 6 hours as needed (dizziness). (Patient not taking: Reported on 09/29/2022) fluticasone (FLONASE) 50 mcg/actuation nasal spray Use 2 Sprays in each nostril once daily. Rinse mouth after use. (Patient not taking: Reported on 01/11/2022 ) FAMILY HISTORY Problem Relation Age of Onset Diabetes Father Cancer Sister [employer] SCRE[employer] CLE[employer]ER 36 Diabetes Maternal Grandfather Hypertension Maternal Grandfather Colon Cancer Other diagnosed in 30-40s. unclear on type of cancer Social History Tobacco Use Smoking status: Every Day Packs/day: 5.00 Types: Cigarettes Last attempt to quit: 05/21/2018 Years since quittin.6 Smokeless tobacco: Never Tobacco comments: 0.5 Vaping Use Vaping Use: Never used Substance Use Topics Alcohol use: No Drug use: No Review of Systems Constitutional: Negative for chills and fever. HENT: Negative for congestion, ear pain and sore throat. Respiratory: Negative for cough and shortness of breath. Cardiovascular: Negative for chest pain. Gastrointestinal: Negative for abdominal pain, diarrhea and vomiting. Genitourinary: Positive for dysuria, frequency and urgency. Negative for hematuria and pelvic pain. Objective BP 122/68 Pulse 80 Temp 36.7 ?C (98 ?F) Resp 16 Wt 108.4 kg (239 lb) LMP 06/28/2021 SpO2 98% BMI 38.58 kg/m? Physical Exam Vitals and nursing note reviewed. Constitutional: General: She is not in acute distress. Appearance: Normal appearance. She is not toxic-appearing. Cardiovascular: Rate and Rhythm: Normal rate and regular rhythm. Pulmonary: Effort: Pulmonary effort is normal. Breath sounds: Normal breath sounds. Abdominal: General: Abdomen is flat. Palpations: Abdomen is soft. Tenderness: There is no abdominal tenderness. There is no right CVA tenderness or left CVA tenderness. Neurological: Mental Status: She is alert. Assessment and Plan ASSESSMENT/PLAN: 1. Urinary tract infection with hematuria, site unspecified - ICD9: 599.0, 599.70, ICD10: N39.0, R31.9 (primary diagnosis) - UA positive for karen esterase and hematuria - Send urine for culture - Begin treatment with Macrobid 100 mg BID for 5 days - Patient education for prevention given -Recommend following up with PCP regarding hematuria to make sure it has cleared especially if culture comes back negative. She understands. -Treat with Macrobid 2. Burning with urination - ICD9: 788.1, ICD10: R30.0 - UA DIP, URINE (POC) - URINE CULTURE Diagnosis and treatment plan were discussed and questions were answered to the patient's satisfaction. Pt acknowledged understanding of concepts and follow up plan. Specific signs and symptoms that would indicate the need for higher level of care were discussed in detail warranting prompt ER evaluation. ANNMARIE Griffith [facility] 01-24-2023 History of Presen t illness Narrative This note was created using NoteWriter. Subjective Quin Patiño is a 37 year old female. HPI 37-year-old female presents for UTI symptoms. Patient states she had frequency, urgency and pressure starting this morning. She had a little bit of dysuria. No blood in the urine that she has noticed. Her LMP was about 3 weeks ago. No concern for . No vomiting, back pain, abdominal pain or fevers. PAST MEDICAL HISTORY Diagnosis Date Anemia Diabetes, gestational WITH 3 PREVIOUS PREGNANCIES PAST SURGICAL HISTORY Procedure Laterality Date DEL W/ ANTE/POST CARE 2006 DEL W/ ANTE/POST CARE 2008 DEL W/ ANTE/POST CARE DEL W/ ANTE/POST CARE 01/25/2019 DILATION & CURETTAGE DX&/THER NONOBSTETRIC 03/2013 Dilation & curettage EXTRACTION, ERUPTED TOOTH OR EXPOSED ROOT (ELEVATION AND/OR FORCEPS REMOVAL) 2012 TUBAL LIGATION, 01/25/2019 ALLERGIES Patient has no known allergies. MEDICATIONS ferrous sulfate 325 mg (65 mg iron) tablet Take 1 tablet by mouth daily with breakfast. metFORMIN ER (GLUCOPHAGE XR) 500 mg 24 hr tablet Take 1 tablet by mouth daily with breakfast. nitrofurantoin monohydrate and macrocrystal (MACROBID) 100 mg capsule Take 1 capsule by mouth twice daily for 5 days. meclizine (ANTIVERT) 25 mg tab Take 1 tablet by mouth every 6 hours as needed (dizziness). (Patient not taking: Reported on 09/29/2022) fluticasone (FLONASE) 50 mcg/actuation nasal spray Use 2 Sprays in each nostril once daily. Rinse mouth after use. (Patient not taking: Reported on 01/11/2022 ) FAMILY HISTORY Problem Relation Age of Onset Diabetes Father Cancer Sister [employer] S[employer] CLE[employer]ER 36 Diabetes Maternal Grandfather Hypertension Maternal Grandfather Colon Cancer Other diagnosed in 30-40s. unclear on type of cancer Social History Tobacco Use Smoking status: Every Day Packs/day: 5.00 Types: Cigarettes Last attempt to quit: 05/21/2018 Years since quittin.6 Smokeless tobacco: Never Tobacco comments: 0.5 Vaping Use Vaping Use: Never used Substance Use Topics Alcohol use: No Drug use: No Review of Systems Constitutional: Negative for chills and fever. HENT: Negative for congestion, ear pain and sore throat. Respiratory: Negative for cough and shortness of breath. Cardiovascular: Negative for chest pain. Gastrointestinal: Negative for abdominal pain, diarrhea and vomiting. Genitourinary: Positive for dysuria, frequency and urgency. Negative for hematuria and pelvic pain. Objective BP 122/68 Pulse 80 Temp 36.7 C (98 F) Resp 16 Wt 108.4 kg (239 lb) LMP 06/28/2021 SpO2 98% BMI 38.58 kg/m Physical Exam Vitals and nursing note reviewed. Constitutional: General: She is not in acute distress. Appearance: Normal appearance. She is not toxic-appearing. Cardiovascular: Rate and Rhythm: Normal rate and regular rhythm. Pulmonary: Effort: Pulmonary effort is normal. Breath sounds: Normal breath sounds. Abdominal: General: Abdomen is flat. Palpations: Abdomen is soft. Tenderness: There is no abdominal tenderness. There is no right CVA tenderness or left CVA tenderness. Neurological: Mental Status: She is alert. Assessment and Plan ASSESSMENT/PLAN: 1. Urinary tract infection with hematuria, site unspecified - ICD9: 599.0, 599.70, ICD10: N39.0, R31.9 (primary diagnosis) - UA positive for karen esterase and hematuria - Send urine for culture - Begin treatment with Macrobid 100 mg BID for 5 days - Patient education for prevention given -Recommend following up with PCP regarding hematuria to make sure it has cleared especially if culture comes back negative. She understands. -Treat with Macrobid 2. Burning with urination - ICD9: 788.1, ICD10: R30.0 - UA DIP, URINE (POC) - URINE CULTURE Diagnosis and treatment plan were discussed and questions were answered to the patient's satisfaction. Pt acknowledged understanding of concepts and follow up plan. Specific signs and symptoms that would indicate the need for higher level of care were discussed in detail warranting prompt ER evaluation. ANNMARIE Griffith documented in this encounter [facility] 09-29-2022 Instructions Stiven Penaloza - 09/29/2022 10:29 AM EST CARE FOR YOUR SHAVE BIOPSY SITE Please follow these instructions for daily wound care: 1. Wash the area every day with gentle soap and water. 2. Apply a thin layer of Vaseline or Aquaphor to the wound site to keep the area slightly greasy at all time (this helps to prevent scabbing). Please do not use an old tub of ointment as this can introduce germs into your wound and cause infection. 3. Cover with a bandage and continue this daily process until the wound is healed. Do not leave a soiled or wet bandage on the wound. -Keep the area clean and dry with the bandage in place the day of surgery. -If you experience any bleeding, please apply pressure to the area for approximately 10 minutes. -You may shower, but do not soak in a bathtub, hot tub, pool, carrillo, etc until after the wound has healed. -DO NOT USE NEOSPORIN OR BACITRACIN as there is a fairly high incidence of allergic response to these products. -You may experience some mild discomfort, redness, swelling, and/or a clear discharge from the wound after your procedure. Severe pain, worsening swelling, and foul-smelling discharge from the site are NOT to be expected. If you have concerns about how your wounds are healing, please send your provider a [employer] message or call . documented in this encounter [facility] 09-29-2022 History of Presen t illness Narrative NEW PATIENT Chief Complaint: Patient presents with: LESION, SKIN HPI: Quin Patiño is a 37 year old female who presents today for: Patient presents with: LESION, SKIN CHIEF COMPLAINT #1: Location(s): Neck- right side Duration: years Description/Symptoms: Change in size Painful Denies: itchiness, discharge, bleeding Worsening factors: none Improving factors: none Severity: Mild Current Treatment(s): none Past Treatment(s): none Additional Comments: - Grew in size and part of it fell off several years ago - Getting caught on things, baby is pulling on it, painful when shower water hits the area Pertinent History: History of skin cancer or atypical nevi: No Family history of skin cancer: No Organ transplant or immunosuppression: No or : No Past Medical History is reviewed. Medication List is reviewed. ROS: Skin as above. Physical Exam: Galan skin type: II The patient is a pleasant female in no apparent distress. Alert and oriented x 3. A skin exam performed of the neck is significant for: Right Postauricular Area 1 cm x 1 cm brown frambroisiform (raspberry appearance) papule Assessment and Plan: Neoplasm of unspecified behavior of bone, soft tissue, and skin Right Postauricular Area SKIN / NAIL BIOPSY Type of biopsy: tangential Informed consent: discussed and consent obtained Informed consent comment: Verbal consent obtained Timeout: patient name, date of , surgical site, and procedure verified Procedure prep: Patient was prepped and draped in usual sterile fashion Prep type: Isopropyl alcohol Anesthesia: the lesion was anesthetized in a standard fashion Anesthetic: 1% lidocaine w/ epinephrine 1-100,000 local infiltration Instrument used: DermaBlade Hemostasis achieved with: pressure and aluminum chloride Outcome: patient tolerated procedure well Post-procedure details: sterile dressing applied and wound care instructions given Dressing type: petrolatum and bandage Additional details: I discussed treatment options with the patient. The risks of bleeding, infection, scarring, damage to underlying structures and potential need for future procedures discussed. Alternatives including no treatment were discussed. The patient verbalized understanding and desires us to proceed. Specimen A - SURGICAL PATHOLOGY SKIN ONLY Rule out irritated congenital nevus vs ISK The nature of sun-induced photo-aging and skin cancers is discussed including the ABCDE's of melanoma. Sun avoidance, protective clothing, and the use of 30-SPF sunscreens is advised. Patient is instructed to perform regular self exams. Observe for changing, symptomatic, or new skin lesions and return to dermatology if any lesions of concern are noted. Follow up as noted in plan or as needed. Intake: DARLIN Walter Student: Stiven Penaloza I, Elisabeth Hu MS, PA-C, have personally seen and examined the patient. I have discussed the case and the management of this patient's care with the PA/Medical Student or PA Trainee and agree with the documentation. I agree with the Chief Complaint, ROS, and Past Histories independently gathered by the clinical application support intern and the remaining scribed note accurately describes my personal service to the patient. Elisabeth Hu MS, JOSE Procedure: shave biopsy Informed Consent Consent Obtained: Verbal [place] Protocol A moment to CARE was completed SIGN IN Personnel directly involved with the procedure wore the appropriate PPE Special Equipment: N/A Patient/Surrogate Stated/Verified: Patient name, Date of , Relevant allergies and Intended procedure TIME OUT Intended patient and procedure match the source document(s) Correct side/site marked and visible. Medications required for procedure verified. Fire risk assessed and interventions discussed. SIGN OUT All specimen containers correctly labeled. All instruments, equipment, possible retained foreign bodies accounted for. Post-procedure follow-up management communicated and Plan of Care Visit completed when applicable documented in this encounter [facility] 04-01-2022 History of Presen t illness Narrative CC: Patient presents with: Recheck: Ongoing vertigo HPI Quin Patiño is a 37 year old female who presents today for ongoing vertigo. Is noticing this happens more often especially first thing in the morning and with certain head movements. Usually lasts for a few seconds and self resolves. Denies ear pain, ear drainage, sinus drainage, sinus pressure, cough, or heart burn. REVIEW OF SYSTEMS General: no fevers, no chills, no night sweats, no recurrent infections, no change in appetite, no change in energy and no significant changes in weight HEENT: no frequent or significant headaches, no visual changes, no nose bleeds, no sinus or nasal problems Respiratory: no cough, no wheezing, no shortness of breath, no hemoptysis Cardiovascular: no chest pain, no chest pressure, no palpitations and no swelling GI: No nausea, vomiting, or diarrhea Endocrine: no fatigue, no cold intolerance, no heat intolerance, no polyuria, no polyphagia and no polydipsia Neurologic: No headache, weakness, numbness, tingling, dizziness, syncope. PAST MEDICAL HISTORY Diagnosis Date Anemia Diabetes, gestational WITH 3 PREVIOUS PREGNANCIES PAST SURGICAL HISTORY Procedure Laterality Date DEL W/ ANTE/POST CARE 2006 DEL W/ ANTE/POST CARE 2009 DEL W/ ANTE/POST CARE DEL W/ ANTE/POST CARE 01/25/2019 DILATION & CURETTAGE DX&/THER NONOBSTETRIC 03/2013 Dilation & curettage EXTRACTION, ERUPTED TOOTH OR EXPOSED ROOT (ELEVATION AND/OR FORCEPS REMOVAL) 2012 TUBAL LIGATION, 01/25/2019 ALLERGIES Patient has no known allergies. MEDICATIONS metFORMIN ER (GLUCOPHAGE XR) 500 mg 24 hr tablet Take 1 tablet by mouth daily with breakfast. meclizine (ANTIVERT) 25 mg tab Take 1 tablet by mouth every 6 hours as needed (dizziness). fluticasone (FLONASE) 50 mcg/actuation nasal spray Use 2 Sprays in each nostril once daily. Rinse mouth after use. FAMILY HISTORY Problem Relation Age of Onset Diabetes Father Cancer Sister [employer] SCRE[employer] CLE[employer]ER 36 Diabetes Maternal Grandfather Hypertension Maternal Grandfather Colon Cancer Other diagnosed in 30-40s. unclear on type of cancer Social History Tobacco Use Smoking status: Current Every Day Smoker Packs/day: 5.00 Types: Cigarettes Last attempt to quit: 05/21/2018 Years since quittin.8 Smokeless tobacco: Never Used Tobacco comment: 0.5 Vaping Use Vaping Use: Never used Substance Use Topics Alcohol use: No Drug use: No PHYSICAL EXAM BP 120/80 Pulse 68 Resp 16 Wt 103.9 kg (229 lb) LMP 06/28/2021 BMI 36.96 kg/m General Appearance: well appearing, in no acute distress, alert Pysch: mood and affect broad and appropriate Skin: Skin color, texture, turgor normal for age; Eyes: PERRLA, EOM's intact, conjunctiva pink and moist, no icterus, sclera white, non-injected Lungs: Lungs clear to auscultation. No wheezing, rhonchi, rales. Heart: RRR without murmur, gallop, or rubs. No ectopy Extremities: No deformities, edema, skin discoloration, clubbing or cyanosis. Good capillary refill. Neurological: Gait normal. Reflexes normal and symmetric. Sensation grossly intact.Diks Hallpike positive for dizziness on right side. Unable to evaluate for nystagmus as patient reflexively closes her eyes with dizziness. Health maintenance reviewed with patient: COVID-19 VACCINE(1) due on 02/20/2023 PNEUMOCOCCAL(1 - PCV) due on 02/20/2023 INFLUENZA(1) due on 05/21/2022 PAP TESTING due on 02/05/2023 HPV TESTING due on 02/05/2023 DEPRESSION SCREENING due on 02/20/2023 DTAP,TDAP,TD(2 - Td or Tdap) due on 11/23/2028 HEPATITIS C SCREENING Completed HIV SCREENING Completed DATA REVIEWED: Most recent labs ASSESSMENT/PLAN: 1. Vertigo - ICD9: 780.4, ICD10: R42 (primary diagnosis) - no red flag S/S on exam - CONSULT TO VESTIBULAR REHAB PT - go to ER for severe headaches, numbness tingling, weakness, or any other urgent concerns. 2. Anemia, unspecified type - ICD9: 285.9, ICD10: D64.9 - has not gotten iron studies completed and will have them drawn today - per patient she has always had very heavy periods which is probably the cause as he has had a history of anemia. - starting iron supplement - recheck cbc in 6 weeks. Prescription instructions reviewed with patient as applicable. Potential red flag symptoms discussed with the patient. Reviewed appropriate action plan to take if red flag symptoms occur. Patient agreeable to treatment plan. Teetee Narayan APRN.CNP documented in this encounter [facility] 02-25-2022 Miscellaneous Notes Patient notified and verbalized understanding. Tricia Topete LPN Cholesterol is slightly elevated. Diet should be rich in fruits, vegetables, lean meats and healthy fats/oils. Avoid processed foods, trans fats, vegetable oils and simple sugars. Watch portion sizes. Aerobic exercise for at least 20 minutes, 3-5 days a week. Also, blood counts indicate iron deficiency anemia, I have ordered iron levels to further evaluate this. Thank you Teetee Narayan APRN.CALIN \ documented in this encounter [facility] 06-03-2022 History of Presen t illness Narrative CC: Patient presents with: Yearly Exam: Annual visit HPI Quin Patiño is a 36 year old female who presents today for annual physical exam. Exercise: denies regular aerobic exercise at this time but was regularly doing work out videos and going to gym. Was unable to afford this anymore a few months. Diet: Watches diet for salt (salty snacks, added salt, processed frozen/canned foods), sugary/sweet snacks, unhealthy fats: No Caffeine: 1 -2 cup a day Water intake: average of almost 100ml daily. DIABETES MELLITUS: Ms. Patiño denies excessive thirst or increased frequency of urination, chest pain or dyspnea , numbness, tingling or pain in extremities, new or unusual visual symptoms, low sugar/hypoglycemic reactions, weight loss/gain, lightheadedness/dizziness and bowel changes/loose stools. Does not eat breakfast and eats later in day, but has noticed sometimes she gets a little nauseated which is resolved at times. Follows a diabetic diet generally not very much. She does not take the metformin very often and averages maybe once a week. She reports checking her Patient's last HgA1C was Hemoglobin A1C (%) Date Value 01/17/2021 6.1 Hemoglobin A1C (POCT) (%) Date Value 08/01/2018 6.1 ) Last Ophthalmology exam was within the past 3 months, goes to [facility]. uQin Patiño is a 36 year old year old female who presents with complaint of headaches first thing in AM No history of headache(s). Pain is located frontal region and described as aching. Headache is described as being mild in intensity. Associated with symptoms of none. unknown Headaches may last for hours and have been occuring daily.. Symptoms have been treated with tylenol but rarely needs it and usually is self resolving. The patient denies numbness, weakness, slurred speech, visual changes, clumsiness, difficulty with gait, change in level of consciousness, change in orientation and change in behavior. She denies history of head injury or trauma, significant caffeine intake, excessive alcohol intake and recently beginning oral contraceptives. Has had dizziness 2 weeks ago that is with movement of head. Mainly notices this every day when she gets out of bed or goes to lay down to go to sleep. States there has been a virus among her sons friend that includes headache and dizziness which she felt this was from. Denies any sinus pressure, sinus drainage, cough, or any other concerns. does state patient snores, but denies stopping breathing or waking up gasping. Patient also does not think she has daytime sleepiness but will pay attention to this. REVIEW OF SYSTEMS General: no fevers, no chills, no night sweats, no recurrent infections, no change in appetite, no change in energy and no significant changes in weight Respiratory: no cough, no wheezing, no shortness of breath, no hemoptysis Cardiovascular: no chest pain, no chest pressure, no palpitations and no swelling GI: No nausea, vomiting, or diarrhea : No current dysuria, increased frequency, or incontinence. Was treated for UTI a few weeks ago and symptoms have resolved. Endocrine: no fatigue, no weight gain, no cold intolerance, no heat intolerance, no polyuria, no polyphagia and no polydipsia Neurologic: No weakness, numbness, tingling, memory loss, syncope. PAST MEDICAL HISTORY Diagnosis Date Anemia Diabetes, gestational WITH 3 PREVIOUS PREGNANCIES PAST SURGICAL HISTORY Procedure Laterality Date DEL W/ ANTE/POST CARE 2006 DEL W/ ANTE/POST CARE 2008 DEL W/ ANTE/POST CARE DEL W/ ANTE/POST CARE 01/25/2019 DILATION & CURETTAGE DX&/THER NONOBSTETRIC 03/2013 Dilation & curettage EXTRACTION, ERUPTED TOOTH OR EXPOSED ROOT (ELEVATION AND/OR FORCEPS REMOVAL) 2012 TUBAL LIGATION, 01/25/2019 ALLERGIES Patient has no known allergies. MEDICATIONS meclizine (ANTIVERT) 25 mg tab Take 1 tablet by mouth every 6 hours as needed (dizziness). fluticasone (FLONASE) 50 mcg/actuation nasal spray Use 2 Sprays in each nostril once daily. Rinse mouth after use. metFORMIN ER (GLUCOPHAGE XR) 500 mg 24 hr tablet Take 1 tablet by mouth daily with breakfast. FAMILY HISTORY Problem Relation Age of Onset Diabetes Father Cancer Sister FIL[employer] SCRE[employer] CLE[employer]ER 36 Diabetes Maternal Grandfather Hypertension Maternal Grandfather Colon Cancer Other diagnosed in 30-40s. unclear on type of cancer Social History Tobacco Use Smoking status: Current Every Day Smoker Packs/day: 5.00 Types: Cigarettes Last attempt to quit: 05/21/2018 Years since quittin.7 Smokeless tobacco: Never Used Tobacco comment: 0.5 Vaping Use Vaping Use: Never used Substance Use Topics Alcohol use: No Drug use: No PHYSICAL EXAM BP 128/80 Pulse 68 Resp 16 Wt 104.8 kg (231 lb) LMP 06/28/2021 BMI 37.28 kg/m General Appearance: well appearing, in no acute distress, alert Pysch: mood and affect broad and appropriate Skin: Skin color, texture, turgor normal for age;, has a brown pedunculated mole behind right ear Eyes: PERRLA, EOM's intact, conjunctiva pink and moist, no icterus, sclera white, non-injected Ears: external ears normal to inspection and palpation, canals clear, Left tympanic membrane normal. , Right tympanic membrane normal Nose/sinus: Nares normal. Septum midline. Mucosa normal. No drainage. Neck: Thyroid normal size and symmetric without palpable nodules, No adenopathy Oropharynx: lips normal without lesions, palate normal, tongue midline and normal Lymph nodes: No cervical lymphadenopathy and No supraclavicular lymphadenopathy Lungs: Lungs clear to auscultation. No wheezing, rhonchi, rales. Heart: RRR without murmur, gallop, or rubs. No ectopy Extremities: No deformities, edema, skin discoloration, clubbing or cyanosis. Good capillary refill. Neurological: Sensation grossly intact., Negative findings: speech normal, mental status intact, gait, including heel, toe, and tandem walking normal, Romberg negative, muscle tone normal, muscle strength normal, reflexes normal and symmetric Positive diks hallpike on right side COVID-19 VACCINE(1) Never done PNEUMOCOCCAL(1 - PCV) Never done DEPRESSION SCREENING due on 01/13/2022 INFLUENZA(Season Ended) due on 05/21/2022 PAP TESTING due on 02/05/2023 HPV TESTING due on 02/05/2023 DTAP,TDAP,TD(2 - Td or Tdap) due on 11/23/2028 HEPATITIS C SCREENING Completed HIV SCREENING Completed ASSESSMENT/PLAN: 1. Annual physical exam - ICD9: V70.0, ICD10: Z00.00 (primary diagnosis) - Counseled on healthy diet and regular exercise - Calcium intake with supplements or by diet of 1000 mg/day for under 50, 6804-1823 mg/day for 50+ - Discussed need and benefit for weight loss. BMI 37.28 kg/(m^2) - Depression screening tool completed and reviewed with patient. Based on score and interview, patient is not at risk for depression and recommended no further intervention at this time. - Follow up for annual exam in one year - COMP METABOLIC PANEL - CBC + DIFF - LIPID PANEL BASIC 2. Prediabetes - ICD9: 790.29, ICD10: R73.03 - patient has lost 15 lbs since last visit, will evaluate HgbA1c for control - METFORMIN ER 500 MG TABLET,EXTENDED RELEASE 24 HR - COMP METABOLIC PANEL - HGB A1C 3. Lipid screening - ICD9: V77.91, ICD10: Z13.220 - COMP METABOLIC PANEL - HGB A1C - LIPID PANEL BASIC 4. Benign mole - ICD9: 216.9, ICD10: D22.9 - patient states it gets caught on her hair brush and would like this removed - CONSULT TO DERMATOLOGY 5. Snoring - ICD9: 786.09, ICD10: R06.83 Weight decreasing - patient to discuss with on how often he notices her snoring and if she ever stops breathing. Possibility for sleep apnea and may be cause of headache, but outside of obesity no other symptoms - patient to evaluate and if no improvement, call in 2 weeks and we will do an at home sleep study 6. Intractable headache, unspecified chronicity pattern, unspecified headache type - ICD9: 784.0, ICD10: R51.9 - short term and not severe, if continues will do sleep study to see if this is the cause. - go to ER for severe headache, weakness, numbness, confusion, difficulty speaking, or any other urgent concerns 7. Vertigo - ICD9: 780.4, ICD10: R42 - positive hallpike maneuver for right ear. Information on BPV and at home exercises given to patient. -use meclizine as needed following directions on label. Do not take more than recommended dosage - go to ER for increased dizziness, chest pain, shortness of breath, syncope, or any other urgent concerns. Prescription instructions reviewed with patient as applicable. Potential red flag symptoms discussed with the patient. Reviewed appropriate action plan to take if red flag symptoms occur. Patient agreeable to treatment plan. Teetee Narayan APRN.CNP documented in this encounter [facility] 01-12-2022 Miscellaneous Notes Patient given results and verbalized understanding of instructions given. Mary Banerjee ----- Message from Stephany Rice APRN.CNP sent at 01/12/2022 6:45 PM EDT ----- Please advise patient the urine did not show clear signs of infection, however there is mixed bacteria present which may be due to contamination during collection. She may continue to take antibiotic if it has been helpful, she should follow up with her PCP to ensure that hematuria has resolved. Stephany Rice APRN.CNP documented in this encounter [facility] 01-11-2022 History of Presen t illness Narrative This note was created using [employer]. Subjective Quin Patiño is a 36 year old female. HPI Patient presents with urinary frequency, urgency and burning x1 day. No hematuria. Denies any vaginal itching or discharge. No new sexual partners. History of a tubal ligation, last menstrual cycle a week ago. No vomiting diarrhea or abdominal pain. No back pain. Review of Systems Constitutional: Negative for fever. Gastrointestinal: Negative for abdominal pain, diarrhea, nausea and vomiting. Genitourinary: Positive for dysuria, frequency and urgency. Negative for flank pain, hematuria, pelvic pain, vaginal bleeding, vaginal discharge and vaginal pain. Musculoskeletal: Negative for back pain. All other systems reviewed and are negative. PAST MEDICAL HISTORY Diagnosis Date Anemia Diabetes, gestational WITH 3 PREVIOUS PREGNANCIES Current Outpatient Medications Medication Sig Dispense Refill metFORMIN ER (GLUCOPHAGE XR) 500 mg 24 hr tablet Take 1 tablet by mouth daily with breakfast. 30 tablet 11 nitrofurantoin monohydrate and macrocrystal (MACROBID) 100 mg capsule Take 1 capsule by mouth twice daily with meals for 7 days. 14 capsule 0 meclizine (ANTIVERT) 25 mg tab Take 1 tablet by mouth every 6 hours as needed (dizziness). (Patient not taking: Reported on 01/11/2022 ) 20 tablet 0 fluticasone (FLONASE) 50 mcg/actuation nasal spray Use 2 Sprays in each nostril once daily. Rinse mouth after use. (Patient not taking: Reported on 01/11/2022 ) 1 Each 0 No current facility-administered medications for this visit. PAST SURGICAL HISTORY Procedure Laterality Date DEL W/ ANTE/POST CARE 2006 DEL W/ ANTE/POST CARE 2008 DEL W/ ANTE/POST CARE DEL W/ ANTE/POST CARE 01/25/2019 DILATION & CURETTAGE DX&/THER NONOBSTETRIC 03/2013 Dilation & curettage EXTRACTION, ERUPTED TOOTH OR EXPOSED ROOT (ELEVATION AND/OR FORCEPS REMOVAL) 2012 TUBAL LIGATION, 01/25/2019 FAMILY HISTORY Problem Relation Age of Onset Diabetes Father Cancer Sister FILTER SCREEN CLEANER 36 Diabetes Maternal Grandfather Hypertension Maternal Grandfather Colon Cancer Other diagnosed in 30-40s. unclear on type of cancer Social History Tobacco Use Smoking status: Current Every Day Smoker Packs/day: 5.00 Types: Cigarettes Last attempt to quit: 05/21/2018 Years since quittin.6 Smokeless tobacco: Never Used Tobacco comment: 0.5 Vaping Use Vaping Use: Never used Substance Use Topics Alcohol use: No Drug use: No Objective BP 118/60 Pulse 85 Temp 36.4 C (97.6 F) (Tympanic) Resp 16 Wt 105.6 kg (232 lb 12.8 oz) LMP 06/28/2021 SpO2 99% BMI 37.57 kg/m Physical Exam Vitals reviewed. Constitutional: Appearance: Normal appearance. HENT: Head: Normocephalic and atraumatic. Cardiovascular: Rate and Rhythm: Normal rate and regular rhythm. Heart sounds: Normal heart sounds. Pulmonary: Effort: Pulmonary effort is normal. Breath sounds: Normal breath sounds. Abdominal: General: Abdomen is flat. Bowel sounds are normal. Palpations: Abdomen is soft. Tenderness: There is abdominal tenderness. There is no right CVA tenderness, left CVA tenderness, guarding or rebound. Comments: Mild suprapubic ttp. No guarding or rebound Neurological: Mental Status: She is alert. Assessment and Plan ASSESSMENT/PLAN: 1. Acute cystitis with hematuria - ICD9: 595.0, ICD10: N30.01 ua positive for large blood and leuks. Will send for culture and start macrobid. - UA DIP, URINE (POC) - URINE CULTURE Karen Ash PA-C documented in this encounter [facility] documented as of this encounter (statuses as of 01/11/2022) [facility] History of Past illness Narrative* Problem Noted Date Resolved Date Encounter for sterilization 10/25/201802/18 Overview: For bilateral salpingectomy at the time of c/s. Medicaid consent 09/27 Rubella non-immune status, antepartum 07/27/2018 03/07/2019 Obesity affecting , antepartum 07/01/20 18 03/07/2019 History of gestational diabe roxanne in prior , currently 07/01/2018 01/25/2019 Previous delivery affecting , antepartum 07/01/2018 01/25/2019 with uncertain viability 018 09/30/2017 Current in first [facility] with history of spontaneous during prior 08/30/2017 09/30/2017 Incomplete spontaneous without complica tion 11/16/2016 09/02/2017 Obesity, Class III, BMI 40-49.9 (morbid obesity) 04/18/2013 07/01/2018 Incomplete 03/21/2013 04/18/2013 Blighted ovum 03/13/2013 03/21/2013 documented as of this encounter (statuses as of 01/12/2022) [facility] History of Past illness Narrative* Problem Noted Date Resolved Date Encounter for sterilization 10/25/201802/18 Overview: For bilateral salpingectomy at the time of c/s. Medicaid consent 09/27 Rubella non-immune status, antepartum 07/27/2018 03/07/2019 Obesity affecting , antepartum 07/01/20 18 03/07/2019 History of gestational diabe roxanne in prior , currently 07/01/2018 01/25/2019 Previous delivery affecting , antepartum 07/01/2018 01/25/2019 with uncertain viability 018 09/30/2017 Current in first t rimester with history of spontaneous during prior 08/30/2017 09/30/2017 Incomplete spontaneous without complica tion 11/16/2016 09/02/2017 Obesity, Class III, BMI 40-49.9 (morbid obesity) 04/18/2013 07/01/2018 Incomplete 03/21/2013 04/18/2013 Blighted ovum 03/13/2013 03/21/2013 documented as of this encounter (statuses as of 02/20/2022) [facility] History of Past illness Narrative* Problem Noted Date Resolved Date Encounter for sterilization 10/25/201802/18 Overview: For bilateral salpingectomy at the time of c/s. Medicaid consent 09/27 Rubella non-immune status, antepartum 07/27/2018 03/07/2019 Obesity affecting , antepartum 07/01/2003/07/2019 History of gestational diabe roxanne in prior , currently 07/01/2018 01/25/2019 Previous delivery affecting , antepartum 07/01/2018 01/25/2019 with uncertain viability 018 09/30/2017 Current in first t rimester with history of spontaneous during prior 08/30/2017 09/30/2017 Incomplete spontaneous without complica tion 11/16/2016 09/02/2017 Obesity, Class III, BMI 40-49.9 (morbid obesity) 04/18/2013 07/01/2018 Incomplete 03/21/2013 04/18/2013 Blighted ovum 03/13/2013 03/21/2013 documented as of this encounter (statuses as of 02/25/2022) [facility] History of Past illness Narrative* Problem Noted Date Resolved Date Encounter for sterilization 10/25/201802/18 Overview: For bilateral salpingectomy at the time of c/s. Medicaid consent 09/27 Rubella non-immune status, antepartum 07/27/2018 03/07/2019 Obesity affecting , antepartum 07/01/20 18 03/07/2019 History of gestational diabe roxanne in prior , currently 07/01/2018 01/25/2019 Previous delivery affecting , antepartum 07/01/2018 01/25/2019 with uncertain viability 018 09/30/2017 Current in first t rimester with history of spontaneous during prior 08/30/2017 09/30/2017 Incomplete spontaneous without complica tion 11/16/2016 09/02/2017 Obesity, Class III, BMI 40-49.9 (morbid obesity) 04/18/2013 07/01/2018 Incomplete 03/21/2013 04/18/2013 Blighted ovum 03/13/2013 03/21/2013 documented as of this encounter (statuses as of 04/01/2022) [facility] History of Past illness Narrative* Problem Noted Date Resolved Date Encounter for sterilization 10/25/201802/18 Overview: For bilateral salpingectomy at the time of c/s. Medicaid consent 09/27 Rubella non-immune status, antepartum 07/27/2018 03/07/2019 Obesity affecting , antepartum 07/01/20 18 03/07/2019 History of gestational diabe roxanne in prior , currently 07/01/2018 01/25/2019 Previous delivery affecting , antepartum 07/01/2018 01/25/2019 with uncertain viability 018 09/30/2017 Current in first t rimester with history of spontaneous during prior 08/30/2017 09/30/2017 Incomplete spontaneous without complica tion 11/16/2016 09/02/2017 Obesity, Class III, BMI 40-49.9 (morbid obesity) 04/18/2013 07/01/2018 Incomplete 03/21/2013 04/18/2013 Blighted ovum 03/13/2013 03/21/2013 documented as of this encounter (statuses as of 07/01/2022) [facility] History of Past illness Narrative* Problem Noted Date Resolved Date Encounter for sterilization 10/25/201802/18 Overview: For bilateral salpingectomy at the time of c/s. Medicaid consent 09/27 Rubella non-immune status, antepartum 07/27/2018 03/07/2019 Obesity affecting , antepartum 07/01/20 18 03/07/2019 History of gestational diabe roxanne in prior , currently 07/01/2018 01/25/2019 Previous delivery affecting , antepartum 07/01/2018 01/25/2019 with uncertain viability 018 09/30/2017 Current in first t rimester with history of spontaneous during prior 08/30/2017 09/30/2017 Incomplete spontaneous without complica tion 11/16/2016 09/02/2017 Obesity, Class III, BMI 40-49.9 (morbid obesity) 04/18/2013 07/01/2018 Incomplete 03/21/2013 04/18/2013 Blighted ovum 03/13/2013 03/21/2013 documented as of this encounter (statuses as of 09/29/2022) [facility] History of Past illness Narrative* Problem Noted Date Resolved Date Encounter for sterilization 10/25/201802/18 Overview: For bilateral salpingectomy at the time of c/s. Medicaid consent 09/27 Rubella non-immune status, antepartum 07/27/2018 03/07/2019 Obesity affecting , antepartum 07/01/20 18 03/07/2019 History of gestational diabe roxanne in prior , currently 07/01/2018 01/25/2019 Previous delivery affecting , antepartum 07/01/2018 01/25/2019 with uncertain viability 018 09/30/2017 Current in first t rimester with history of spontaneous during prior 08/30/2017 09/30/2017 Incomplete spontaneous without complica tion 11/16/2016 09/02/2017 Obesity, Class III, BMI 40-49.9 (morbid obesity) 04/18/2013 07/01/2018 Incomplete 03/21/2013 04/18/2013 Blighted ovum 03/13/2013 03/21/2013 documented as of this encounter (statuses as of 01/24/2023) [facility] History of Past illness Narrative* Problem Noted Date Resolved Date Encounter for sterilization 10/25/201802/18 Overview: For bilateral salpingectomy at the time of c/s. Medicaid consent 09/27 Rubella non-immune status, antepartum 07/27/2018 03/07/2019 Obesity affecting , antepartum 07/01/20 18 03/07/2019 History of gestational diabe roxanne in prior , currently 07/01/2018 01/25/2019 Previous delivery affecting , antepartum 07/01/2018 01/25/2019 with uncertain viability 018 09/30/2017 Current in first t rimester with history of spontaneous during prior 08/30/2017 09/30/2017 Incomplete spontaneous without complica tion 11/16/2016 09/02/2017 Obesity, Class III, BMI 40-49.9 (morbid obesity) 04/18/2013 07/01/2018 Incomplete 03/21/2013 04/18/2013 Blighted ovum 03/13/2013 03/21/2013 documented as of this encounter (statuses as of 01/26/2023) [facility] History of Past illness Narrative* Problem Noted Date Resolved Date Encounter for sterilization 10/25/201802/18 Overview: For bilateral salpingectomy at the time of c/s. Medicaid consent 09/27 Rubella non-immune status, antepartum 07/27/2018 03/07/2019 Obesity affecting , antepartum 07/01/20 18 03/07/2019 History of gestational diabe roxanne in prior , currently 07/01/2018 01/25/2019 Previous delivery affecting , antepartum 07/01/2018 01/25/2019 with uncertain viability 018 09/30/2017 Current in first t rimester with history of spontaneous during prior 08/30/2017 09/30/2017 Incomplete spontaneous without complica tion 11/16/2016 09/02/2017 Obesity, Class III, BMI 40-49.9 (morbid obesity) 04/18/2013 07/01/2018 Incomplete 03/21/2013 04/18/2013 Blighted ovum 03/13/2013 03/21/2013 documented as of this encounter (statuses as of 03/26/2023) [facility] History of Past illness Narrative* Problem Noted Date Diagnosed Date Resolved Date Encounter for sterilization 10/25/2018 03/07/2019 Overview: For bilateral salpingectomy at the time of c/s. Medicaid consent 09/27 Rubella non-immune status, antepartum 07/27/2018 03/07/2019 Obesity affecting , antepartum 07/01/2018 03/07/2019 History of gestational diabe roxanne in prior , currently 07/01/2018 01/25/2019 Previous delivery a ffecting , antepartum 07/01/2018 01/25/2019 with uncertain viability 09/23/2017 09/30/2017 Current in first t rimester with history of spontaneous during prior 08/30/2017 09/30/2017 Incomplete spontaneous abort ion without complication 11/16/2016 09/02/2017 Obesity, Class III, BMI 40-4 9.9 (morbid obesity) 04/18/2013 07/01/2018 Incomplete 03/21/2013 04/18/20 13 Blighted ovum 03/13/2013 03/21/2013 documented as of this encounter (statuses as of 04/07/2023) [facility] Diagnosis Acute cystitis with hematuria- Primary Acute cystitis [facility] Diagnosis Annual physical exam- Primary Routine general medical examination at a health care facility Prediabetes Other abnormal glucose Lipid screening Screening for lipoid disorders Benign mole Benign neoplasm of skin, site unspecified Snoring Other dyspnea and respiratory abnormality Intractable headache, unspecified chronicity pattern, unspecified headache type Vertigo Dizziness and giddiness [facility] Diagnosis Anemia, unspecified type- Primary [facility] Diagnosis Vertigo- Primary Dizziness and giddiness Anemia, unspecified type [facility] Diagnosis Neoplasm of unspecified behavior of bone, soft tissue, and skin- Primary [facility] Diagnosis Urinary tract infection with hematuria, site unspecified- Primary Burning with urination Dysuria [facility] Diagnosis Prediabetes- Primary Other abnormal glucose History of iron deficiency anemia Personal history of diseases of blood and blood-forming organs Bilateral hip pain Pain in joint, pelvic region and thigh Bilateral leg pain Pain in limb Chronic midline low back pain, unspecified whether sciatica present Missed menses Absence of menstruation Decreased libido Lipid screening Screening for lipoid disorders [facility] Diagnosis Bilateral hip pain- Primary Pain in joint, pelvic region and thigh Bilateral leg pain Pain in limb Tendinosis Unspecified disorder of synovium, tendon, and bursa [facility]ative)* Diagnostic Procedure Only (Routine) - Pending Review Specialty Diagnoses / Procedures Referred By Contac t Referred To Contact XR IMAGING Diagnoses Bilateral hip pain Bilateral leg pain Chronic midline low back pain, unspecified whether sciatica present Procedures XR HIP BILATERAL 5V PEL/AP/LAT EACH HIP RADEX HIPS BILATERAL WITH PELVIS MINIMUM 5 VIEWS Teetee Narayan APRN.CNP [address] [place] [address] Xr Imaging Referral ID Status Reason Start Date Expiration Date Visits Requested Visits Authorized [id number] Pending Review Auto-Generat ed Referral 03/26/2023 04/24/2024 1 1 * Diagnostic Procedure Only (Routine) - Pending Review Specialty Diagnoses / Procedures Referred By Contac t Referred To Contact XR IMAGING Diagnoses Bilateral hip pain Bilateral leg pain Chronic midline low back pain, unspecified whether sciatica present Procedures XR LUMBAR GENERAL 3V AP/LAT/L5-S1 RADEX SPINE LUMBOSACRAL 2/3 VIEWS Teetee Narayan APRN.CNP [address] [place] [address] Xr Imaging Referral ID Status Reason Start Date Expiration Date Visits Requested Visits Authorized [id number] Pending Review Auto-Generat ed Referral 03/26/2023 04/24/2024 1 1 [facility] Summary Purpose Family History No Family History Records FoundNo Family History Records FoundNo Family History Records FoundNo Family History Records Found Advance Directives No Advanced Directives Records FoundDocuments on File Type Date Recorded Patient 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 Active Problems: Obesity affecting , antepartum Rubella non-immune status, antepartum Pre-existing type 2 diabetes mellitus during in third trimester Encounter for sterilization Previous section Resolved Problems: * No resolved hospital problems. * COMPLICATIONS: None PROCEDURES/SURGERY DURING HOSPITALIZATION: Section Hospital Course: 33 year old? at?39w3d?with 3 prior sections and desired permanent sterilization??Pls see operative report for details. Patient met all postoperative and milestones and was considered medically s (more content not included)... Note HNO ID: [id number] Author: Renee Fox Service: Gynecology Author Type: Physician Type: LANDD Delivery Note Filed: 01/25/2019 11:13 AM Note Text: OBSTETRICS - BRIEF OPERATIVE NOTE DELIVERY SUMMARY: Log ID: [id number] Surgery Date: 01/25/2019 Incision/Procedure Start Time: 10:03 AM Incision Close/Procedure End Time: 11:10 AM Gestational Age at Delivery: 39w3d Primary Reason for Delivery Today: Diabetes - Pre-Gestational Additional Clinical Indicators for Delivery: Scheduled Cesearean Section Indication for : Prior Section Additional Pre-Op Details (if applicable): 33 year old at 39w3d with 3 prior sections and desired permanent sterilization Postop Diagnosis: Same as pre-op diagnosis Surgeon(s) and Agency Sales Representative(s): Surgeon(s) and Role: * Diamante Fox - Primary Physician Agency Sales Representative: Arturo Adhikari Procedures and Anesthesia: Procedure(s) and Anesthesia Type: * SECTION REPEAT - Spinal * LIGATION FALLOPIAN TUBE(S) W/ DELI (more content not included)... Procedure Findings Note HNO ID: [id number] Author: Renee Fox Service: Gynecology Author Type: Physician Type: LANDD Delivery Note Filed: 01/25/2019 11:13 AM Note Text: OBSTETRICS - BRIEF OPERATIVE NOTE DELIVERY SUMMARY: Log ID: [id number] Surgery Date: 01/25/2019 Incision/Procedure Start Time: 10:03 AM Incision Close/Procedure End Time: 11:10 AM Gestational Age at Delivery: 39w3d Primary Reason for Delivery Today: Diabetes - Pre-Gestational Additional Clinical Indicators for Delivery: Scheduled Cesearean Section Indication for : Prior Section Additional Pre-Op Details (if applicable): 33 year old at 39w3d with 3 prior sections and desired permanent sterilization Postop Diagnosis: Same as pre-op diagnosis Surgeon(s) and Agency Sales Representative(s): Surgeon(s) and Role: * Diamante Fox - Primary Physician Agency Sales Representative: Arturo Adhikari Procedures and Anesthesia: Procedure(s) and Anesthesia Type: * SECTION REPEAT - Spinal * LIGATION FALLOPIAN TUBE(S) W/ DELI (more content not included)... Reason for Referral Specialty Diagnoses / Procedures Referred By Contac t Referred To Contact Dermatology Diagnoses Benign mole Procedures CONSULT TO DERMATOLOGY Teetee Narayan APRN.SUPERVISOR HEAT TREATING [address] [place] [address] Referral ID Status Reason Start Date Expiration Date Visits Requested Visits Authorized [id number] Ref Not Required PCP Requested Referral 02/20/2022 02/20/2023 1 1 Specialty Diagnoses / Procedures Referred By Contac t Referred To Contact Orthopedics Diagnoses Bilateral hip pain Bilateral leg pain Tendinosis Procedures CONSULT TO ORTHOPAEDICS OFFICE/OUTPATIENT NEW HIGH MDM 60-74 MINUTES Teetee Narayan APRN.SUPERVISOR HE[employer] TREATING [address] [place] [address] Referral ID Status Reason Start Date Expiration Date Visits Requested Visits Authorized [id number] Authorized PCP Requested Referral 04/01/2023 03/31/2024 1 1 Additional Source Comments INFORMATION SOURCE (unrecogn ized section and content) DATE CREATED AUTHOR AUTHOR'S ORGANIZ ATION 03/15/2018 [facility] DATE CREATED AUTHOR AUTHOR'S ORGANIZ ATION 02/09/2019 [facility] DATE CREATED AUTHOR AUTHOR'S ORGANIZ ATION 10/04/[address] [facility] Source Comments (unrecognize d section and content) In the event this informatio n is protected by the Federal Confidentiality of Alcohol and Drug Abuse Patient Records regulations: The Federal rules restrict any use of the information to criminally investigate or prosecute any alcohol or drug abuse patient.[facility] the event this information is protected by the Federal Confidentiality of Alcohol and Drug Abuse Patient Records regulations: The Federal rules restrict any use of the information to criminally investigate or prosecute any alcohol or drug abuse patient.[facility] the event this information is protected by the Federal Confidentiality of Alcohol and Drug Abuse Patient Records regulations: The Federal rules restrict any use of the information to criminally investigate or prosecute any alcohol or drug abuse patient.[facility] the event this information is protected by the Federal Confidentiality of Alcohol and Drug Abuse Patient Records regulations: The Federal rules restrict any use of the information to criminally investigate or prosecute any alcohol or drug abuse patient.[facility] the event this information is protected by the Federal Confidentiality of Alcohol and Drug Abuse Patient Records regulations: The Federal rules restrict any use of the information to criminally investigate or prosecute any alcohol or drug abuse patient.[facility] the event this information is protected by the Federal Confidentiality of Alcohol and Drug Abuse Patient Records regulations: The Federal rules restrict any use of the information to criminally investigate or prosecute any alcohol or drug abuse patient.[facility] the event this information is protected by the Federal Confidentiality of Alcohol and Drug Abuse Patient Records regulations: The Federal rules restrict any use of the information to criminally investigate or prosecute any alcohol or drug abuse patient.[facility] the event this information is protected by the Federal Confidentiality of Alcohol and Drug Abuse Patient Records regulations: The Federal rules restrict any use of the information to criminally investigate or prosecute any alcohol or drug abuse patient.[facility] the event this information is protected by the Federal Confidentiality of Alcohol and Drug Abuse Patient Records regulations: The Federal rules restrict any use of the information to criminally investigate or prosecute any alcohol or drug abuse patient.[facility] the event this information is protected by the Federal Confidentiality of Alcohol and Drug Abuse Patient Records regulations: The Federal rules restrict any use of the information to criminally investigate or prosecute any alcohol or drug abuse patient.[facility] the event this information is protected by the Federal Confidentiality of Alcohol and Drug Abuse Patient Records regulations: The Federal rules restrict any use of the information to criminally investigate or prosecute any alcohol or drug abuse patient.[facility] Reason for Visit (unrecogniz ed section and content) Reason Comments Results Reason Comments Yearly Exam Annual visit Reason Comments Recheck Ongoing vertigo Reason Comments LESION, SKIN Reason Comments Urinary Problem burning with urinati on x today Reason Comments Recheck Body aches, stiffnes s x 9 months Reason Comments Results Care Teams (unrecognized sec tion and content) Pyridine Operator Relationship Specialty Start Date End Date Monae Carmen MD [address] [place] [address] PCP - General Internal Medicine 02/07/21 Pyridine Operator Relationship Specialty Start Date End Date Monae Carmen MD [address] [place] [address] PCP - General Internal Medicine 02/07/21 Pyridine Operator Relationship Specialty Start Date End Date Monae Carmen MD [address] [place] [address] PCP - General Internal Medicine 02/07/21 Pyridine Operator Relationship Specialty Start Date End Date Monae Carmen MD [address] [place] [address] PCP - General Internal Medicine 02/07/21 Pyridine Operator Relationship Specialty Start Date End Date Monae Carmen MD [address] [place] [address] PCP - General Internal Medicine 02/07/21 Pyridine Operator Relationship Specialty Start Date End Date Monae Carmen MD [address] [place] [address] PCP - General Internal Medicine 02/07/21 FOR RECORDS PERTAINING TO PATIENTS WHO ARE OR HAVE BEEN ENROLLED IN A CHEMICAL DEPENDENCY/SUBSTANCEABUSE PROGRAM, SOME INFORMATION MAY BE OMITTED. This clinical summary was aggregated from multiple sources. Caution should be exercised in using it in the provision of clinical care. This summary normalizes information from multiple sources, and as a consequence, information in this document may materially change the coding, format and clinical context of patient data. In addition, data may be omitted in some cases. CLINICAL DECISIONS SHOULD BE BASED ON THE PRIMARY CLINICAL RECORDS. [facility] [employer] [facility]. provides no warranty or guarantee of the accuracy or completeness of information in this document.
== END | disposition home or self-care (01) ==
PROVIDERS: Referring Provider Otolaryngology; Visit Provider Otolaryngology
DX: J02.9 Acute pharyngitis, unspecified (principal)
CPT/HCPCS: 87070

== ENCOUNTER 2023-11-13 10:25 | Emergency (ER) | payer BC, MEDICAID, SELFPAY ==
[2023-11-13 10:26] VITALS: BP 140/90; PULSE 85; RESP 16; TEMP 36.4; O2SAT 99; BMI 37.1
--- NOTE | 2023-11-13 10:48 | EDS_ITS ---
HPI HPI - URI History of Present Illness Chief Complaint: Sore Throat Informant: patient and spouse/S.O. Onset/Context/Timing Onset: Today and Yesterday Context: Gradual Onset Timing: Continuous Current Severity: Mild Maximum Severity: Mild Worsened by: Swallowing Associated Symptoms Associated Symptoms: Positive for Headache Narrative Narrative: 38-year-old female no seen past medical history. Developed sore throat yesterday. Painful swallowing. No vomiting or diarrhea. No significant cough. Others at home with URI symptoms. Prior similar symptoms: Yes Recent Illness/Hospitalization: No ROS ROS ED ROS Narrative Sore throat. Earache. Review of Systems ROS Unobtainable: Denies due to encephalopathy Constitutional Constitutional ED: Reports chills, fever(s) and subjective Eyes Eyes: Denies blurry vision ENT ENT ED: Reports ear pain and sore throat; Denies rhinorrhea Cardiovascular Cardiovascular: Denies chest pain Respiratory/Chest Respiratory/Chest: Denies cough Gastrointestinal Gastrointestinal: Denies abdominal pain Genitourinary Genitourinary ED: Denies dysuria Musculoskeletal Musculoskeletal: Denies arthralgias Integumentary Denies abscess Neurologic Neurologic: Denies headache(s) Psychiatric Psychiatric: Denies anxiety Endocrine Endocrinology: Denies cold intolerance Hematologic/Lymphatic Hematologic/Lymphatic: Denies easy bleeding, easy bruising or lymphadenopathy Allergic/Immunologic Allergic/Immunologic ED: Denies mouth swelling, tongue swelling or urticaria PFSH PFSH Medical History no medical history no medical history Home Medications amoxicillin 500 mg capsule 500 mg PO TID 10 days #30 caps 11/13/23 [Rx Last Taken Unknown] Allergy/AdvReac Type Severity Reaction Status Date / Time No Known Allergies Allergy Verified 11/13/23 10:26 Social History Smoking Status: Current every day smoker tobacco type: cigarettes EXAM Physical Exam Narrative Exam Narrative: 38-year-old female vital signs stable afebrile. Pulse ox 99% on room air no hypoxia. No distress. H EENT exam TMs have fluid behind both drums. Canals normal. Posterior pharynx enlarged tonsils bilaterally. Red. Exudate bilaterally. Looks like strep throat. No peritonsillar abscess. No stridor or drooling. Able to swallow. Neck anterior chain lymphadenopathy. Trachea midline. Lungs clear to auscultation bilaterally. Heart regular rhythm no murmur. Abdomen soft nontender. No inguinal or axillary lymphadenopathy. Back nontender. Moving all 4 extremities. Nontender no edema. Awake and alert. No focal motor deficits. Const Vital Signs: 11/13/23 10:26 Temperature 97.6 F L Temperature Source Temporal Pulse Rate 85 Respiratory Rate 16 Blood Pressure 140/90 H Blood Pressure Mean 106 Pulse Ox 99 Oxygen Delivery Method Room Air Positive well nourished and well developed; Negative for cachectic or contractures General Appearance ED: well developed and NAD; Negative for cachectic, contractures, cyanotic, diaphoretic or pallor Nutritional Appearance: Negative for cachectic HEENT Reports moist mucous membranes HEENT Narrative: Posterior pharynx shows red enlarged tonsils bilaterally. Exudate. No stridor or drooling. Able to handle own secretions. normocephalic and atraumatic; Negative for scalp tenderness Face and Sinus: Negative for sinus tenderness Teeth and Gingiva: Negative for caries Throat: tonsils abnormal and posterior oropharynx abnormal; Negative for posterior oropharynx normal Eyes PERRL and EOMs intact bilaterally General Eye ED: Negative for pale conjunctiva, scleral icterus or other Neck No no lymphadenopathy, supple, no meningeal signs and no JVD General: lymphadenopathy Resp normal respiratory effort and clear to auscultation bilaterally Effort and Inspection: Negative for retractions, pain with movement or other Auscultation: Negative for rales, rhonchi or wheezes Cardio S1 normal heart sound, S2 normal heart sound and no murmurs Rate: regular rate Rhythm: regular rhythm GI non-tender, non-distended and no masses Inspection: Negative for abdominal distention Auscultation: normoactive bowel sounds Palpation: soft; Negative for tender, guarding, splenomegaly or mass Back/Spine normal ROM; Negative for no CVA tenderness General Back: Negative for CVA tenderness Cervical Spine: Negative for cervical spine tenderness Thoracic Spine / Upper Back: Negative for thoracic spinal tenderness Lumbar Spine / Lower Back: Negative for lumbar spinal tenderness Sacrum: Negative for tenderness Extremity normal to inspection and full ROM General Extremety ED: Negative for cyanosis or tenderness General Extremity: Negative for cyanosis Neuro oriented x3 and CN's II-XII intact bilaterally Sensorium / Orientation: alert, oriented to person, oriented to place and orient ed to time; Negative for orientation impaired, lethargic or stuporous Motor Exam: strength 5/5 throughout Psych mental status grossly normal Appearance: Negative for other Attitude: No agitated Mood & Affect: Negative for depressed, anxious or tearful Skin General Skin Exam: Negative for jaundice or pallor Lesions: no lesions Rashes: no rashes Trauma: Negative for abrasion, laceration or puncture MDM MDM MDM Narrative Medical decision making narrative: 38-year-old female with sore throat since yesterday. Able to swallow. Clinically looks like strep she is exudate bilaterally and anterior chain lymphadenopathy. No axillary or inguinal lymphadenopathy. No abdominal tenderness. I do not think this is mono. Rapid strep being obtained. Repeat exam unchanged at 12:45. We discussed her test results. She will be given a dose of amoxicillin here and placed on it 500 mg 3 times a day for 10 days. Outpatient follow-up as needed. Return if worse. Plenty of fluids and rest. History & Record Review Discussion w/independent historian: Patient and Family Additional record(s) reviewed:: Prior inpatient record, Prior outpatient record, Prior ED visit and Prior labs Lab Data Attestation: I reviewed the patient's lab results. Lab results narrative: Rapid strep show is positive. Discharge Plan Triage Chief Complaint: Sore Throat ED Provider: Elvin Ivory Dx/Rx/DC Orders Clinical Impression: Strep sore throat Instructions: ED Pharyngitis, Strep (Confirmed) Prescriptions: New amoxicillin 500 mg capsule 500 mg PO TID 10 Days Qty: 30 0RF Primary Care Provider: ELEANRO MADRID Referrals: [facility] [Primary Care Provider] - 3-5 Days if not improving Activity Restrictions/Additional Instructions: You have strep throat. Plenty of fluids. Alternate Tylenol and Motrin for pain and bodyaches. Warm salt water gargling. The antibiotic amoxicillin 3 times a day. Follow-up with your doctor if not improving or return if worse. Antibiotics will take about 3 days you should start gradually feeling better. Disposition Disposition: Home, Self Care
--- OUTSIDE RECORDS SUMMARY | 2023-11-13 11:38 | XMS RPT_ITS | CCD ---
Author Name Unknown Address [address] [place] [address] Organization [facility] Care Team Providers Care Public Message Service Supervisor Name Role Phone NO FAMILY DOCTOR, NO FAMILY DOCTOR Unavailable Unavailable ESTEFANI AYOUB Unavailable Unavailable Nella PACE, Monae Primary Care Provider Monae Carmen MD Primary Care Provider Monae Carmen MD Primary Care Provider [phone] Monae Carmen MD Primary Care Provider OLDER, [...] 10:21-0400 Body weight 107.5 kg Teetee Older MISSILE PAD MECHANIC.ENGLISH COMPOSITION TEACHER Work Phone: [facility] 03-26-2023 10:21-0400 Diastolic blood pressure 82 mm[Hg] Teetee Older MISSILE PAD MECHANIC.ENGLISH COMPOSITION TEACHER Work Phone: [facility] 03-26-2023 10:21-0400 Heart rate 68 /min Teetee Older MISSILE PAD MECHANIC.ENGLISH COMPOSITION TEACHER Work Phone: [facility] 03-26-2023 10:21-0400 Respiratory rate 16 /min Teetee Older MISSILE PAD MECHANIC.ENGLISH COMPOSITION TEACHER Work Phone: [facility] 03-26-2023 10:21-0400 Systolic blood pressure 128 mm[Hg] Teetee Older MISSILE PAD MECHANIC.ENGLISH COMPOSITION TEACHER Work Phone: [facility] 01-24-2023 13:44-0400 Body temperature 98.01 [degF] Krislyn Aberegg PA Work Phone: [facility] 01-24-2023 13:44-0400 Body weight 108.41 kg Krislyn Aberegg PA Work Phone: [facility] 01-24-2023 13:44-0400 Diastolic blood pressure 68 mm[Hg] Krislyn Aberegg PA Work Phone: [facility] 01-24-2023 13:44-0400 Heart rate 80 /min Krislyn Aberegg PA Work Phone: [facility] 01-24-2023 13:44-0400 Respiratory rate 16 /min Krislyn Aberegg PA Work Phone: [facility] 01-24-2023 13:44-0400 SaO2% (BldA) [Mass fraction] 98 % Krislyn Aberegg PA Work Phone: [facility] 01-24-2023 13:44-0400 Systolic blood pressure 122 mm[Hg] Krislyn Aberegg PA Work Phone: [facility] 04-01-2022 11:05-0400 Body weight 103.87 kg Teetee Older MISSILE PAD MECHANIC.ENGLISH COMPOSITION TEACHER Work Phone: [facility] 04-01-2022 11:05-0400 Diastolic blood pressure 80 mm[Hg] Teetee Older MISSILE PAD MECHANIC.ENGLISH COMPOSITION TEACHER Work Phone: [facility] 04-01-2022 11:05-0400 Heart rate 68 /min Teetee Older MISSILE PAD MECHANIC.ENGLISH COMPOSITION TEACHER Work Phone: [facility] 04-01-2022 11:05-0400 Respiratory rate 16 /min Teetee Older MISSILE PAD MECHANIC.ENGLISH COMPOSITION TEACHER Work Phone: [facility] 04-01-2022 11:05-0400 Systolic blood pressure 120 mm[Hg] Teetee Older MISSILE PAD MECHANIC.ENGLISH COMPOSITION TEACHER Work Phone: [facility] 02-20-2022 09:20-0400 Body weight 104.78 kg Teetee Older MISSILE PAD MECHANIC.ENGLISH COMPOSITION TEACHER Work Phone: [facility] 02-20-2022 09:20-0400 Diastolic blood pressure 80 mm[Hg] Teetee Older MISSILE PAD MECHANIC.ENGLISH COMPOSITION TEACHER Work Phone: [facility] 02-20-2022 09:20-0400 Heart rate 68 /min Teetee Older MISSILE PAD MECHANIC.ENGLISH COMPOSITION TEACHER Work Phone: [facility] 02-20-2022 09:20-0400 Respiratory rate 16 /min Teetee Older MISSILE PAD MECHANIC.ENGLISH COMPOSITION TEACHER Work Phone: [facility] 02-20-2022 09:20-0400 Systolic blood pressure 128 mm[Hg] Teetee Older MISSILE PAD MECHANIC.ENGLISH COMPOSITION TEACHER Work Phone: [facility] 01-11-2022 11:18-0400 Body temperature 97.59 [degF] Karen Athy PA-C Work Phone: [facility] 01-11-2022 11:18-0400 Body weight 105.6 kg Karen Athy PA-C Work Phone: [facility] 01-11-2022 11:18-0400 Diastolic blood pressure 60 mm[Hg] Karen Athy PA-C Work Phone: [facility] 01-11-2022 11:18-0400 Heart rate 85 /min Karen Athy PA-C Work Phone: [facility] 01-11-2022 11:18-0400 Respiratory rate 16 /min Karen Athy PA-C Work Phone: [facility] 01-11-2022 11:18-0400 SaO2% (BldA) [Mass fraction] 99 % Karen Athy PA-C Work Phone: [facility] 01-11-2022 11:18-0400 Systolic blood pressure 118 mm[Hg] Karen Athy PA-C Work Phone: [facility] Encounters Encounter Date Encounter Type Care Provider Facility Start: 09-30-2023 End: 09-30-2023 ambulatory [facility] Facility:[facility] Start: 09-16-2023 End: 09-16-2023 ambulatory JOSE DANIEL BESS Facility:[facility] Start: 09-14-2023 End: 09-14-2023 ambulatory [facility] Facility:[facility] Start: 04-01-2023 Telephone encounter Teetee Narayan APRN.ENGLISH COMPOSITION TEACHER Work Phone: [facility] Procedures Date Procedure Procedure Detail Performing Clinician Start: 03-26-2023 Urine test visual color cmprsn meths Teetee Narayan MISSILE PAD MECHANIC.ENGLISH COMPOSITION TEACHER Work Phone: Start: 03-26-2023 Hemoglobin A1c/Hemoglobin.total in Blood Teetee Narayan MISSILE PAD MECHANIC.ENGLISH COMPOSITION TEACHER Work Phone: Start: 01-24-2023 Urnls dip stick/tabl et rgnt auto w/o microscopy Karen Ash PA-C Work Phone: Start: 09-29-2022 SKIN / NAIL BIOPSY Crista Hu PA-C Work Phone: Start: 02-20-2022 Adult depression screening assessment Teetee Helene HALEYENGLISH COMPOSITION TEACHER Work Phone: Start: 01-11-2022 Urnls dip stick/tabl et rgnt auto w/o microscopy Karen Ash PA-C Work Phone: Start: 01-13-2021 Adult depression screening assessment Karen Ash PA-C Work Phone: Start: 01-25-2019 H/O: section Previous section Karen Ash PA-C Work Phone: Start: 01-25-2019 Antibody screen Plan of Treatment Date Care Activity Detail Author Start: 11-23-2028 Urine microalbumin profile DTA P,TDAP,TD (2 - Td or Tdap) [facility] Start: 03-26-2024 COVID-19 VACCINE (#1) COVID-19 VACCI NE (#1) [facility] Immunizations Immunization Date Immunization Notes Care Provider Ebony germain 01-27-2019 measles, mumps and rubella virus vaccine Karen Ash PA-C Work Phone: [facility] 11-23-2018 tetanus toxoid, redu bi diphtheria toxoid, and acellular pertussis vaccine, adsorbed Karen Ash PA-C Work Phone: [facility] 06-17-2018 influenza, injectabl e, quadrivalent, preservative free Karen Ash PA-C Work Phone: [facility] Payers Date Payer Category Payer Medicaid [id number] 2022 Unknown [id number] 2021 Unknown YAN HERBERT PPO [id number] 2021-Present [phone] [address] [place] [address] PPO [id number] 2021 Unknown YAN HERBERT PPO [id number] 2021-Present [phone] [address] [place] [address] PPO [id number] 2021 Unknown [id number] 2021 Unknown [id number] 2018 Medicaid [employer] [id number] 2018-Present [phone] [address] [place] [address] Medicaid [id number] 2018 Medicaid [id number] Social History Date Type Detail Facility Start: 03-08-2020 End: 01-24-2023 Tobacco smoking status NHIS Smokes tobacco daily [facility] End: 05-21-2018 History of tobacco use Cigarette Smoker [facility] Start: 03-08-2020 End: 03-24-2023 Cigarettes smoked current (pack per day) - Reported 5 [facility] Start: 03-08-2020 End: 01-24-2023 Tobacco use and exposure Smokeless tobacco non-user [facility] Start: 01-11-2022 End: 01-24-2023 Alcohol intake Current non-drinker of alcohol (finding) [facility] Start: 01-13-2021 End: 03-25-2023 History SDOH Alcohol Frequency 2 [facility] Start: 01-13-2021 End: 03-25-2023 History SDOH Alcohol Binge 1 [facility] Start: 01-13-2021 End: 03-25-2023 History SDOH Social Connections Phone 5 [facility] Start: 01-13-2021 End: 03-25-2023 History SDOH Social Connections Living 3 [facility] Start: 01-13-2021 End: 03-25-2023 History SDOH Physical Activity MPS 6 [facility] Start: 01-13-2021 End: 03-25-2023 History SDOH Financial 4 [facility] Start: 01-13-2021 Education 21 [facility] Start: 03-08-2020 End: 01-24-2023 Tobacco Comment 0.5 [facility] Start: 1985 Sex Assigned At Female [facility] Start: 03-30-2022 History SDOH Alcohol Std Drinks 98 [facility] Start: 03-24-2023 End: 03-26-2023 Social connection and isolation panel [facility] Do you belong to any clubs or organizations such as tenriism groups, unions, fraternal or athletic groups, or school groups? No [facility] Are you now , , , , never or living with a partner? [facility] How often to you hav e a drink containing alcohol? Monthly or less [facility] How many standard dr inks containing alcohol do you have on a typical day? 3 or 4 [facility] How often do you hav e 6 or more drinks on 1 occasion? Never [facility] How hard is it for y ou to pay for the very basics like food, housing, medical care, and heating Not very hard [facility] Adult Depression Screening Assessment 0 [facility] Work Phone: Do you feel stress - tense, restless, nervous, or anxious, or unable to sleep at night because your mind is troubled all the time - these days [OSQ] Only a little [facility] (I/We) worried wheth er (my/our) food would run out before (I/we) got money to buy more. Never true [facility] The food that (I/we) bought just didn't last, and (I/we) didn't have money to get more. Sometimes true [facility] Start: 01-13-2021 Gender identity Identifies as female gender (finding) [facility] Start: 01-13-2021 Sexual orientation Heterosexual (finding) [facility] Clinical Notes 10-25-2018 to 09-30-2023 Telephone Encounter - Teetee Narayan APRN.ENGLISH COMPOSITION TEACHER - 04/01/2023 3:36 PM EDTTelephone Encounter - Raquel Bunn Ma - 04/01/2023 3:32 PM EDTTelephone Encounter - Teetee Narayan APRN.CNP - 04/01/2023 3:25 PM EDT Note Date & Type Note Facility 09-30-2023 Note HNO ID: [id number] Author: REN SHABAZZ APRN.CALIN Service: ? Author Type: Nurse Practitioner Type: Progress Notes Filed: 09/30/2023 09:51 Note Text: This note was created using NoteWriter. Subjective Quin Patiño is a 38 year old female. 38 year old female with no PMH presents for illness. Acute onset 1 1/2 weeks ago Seen here 09/14/23 Negative strep Placed on Augmentin F/U on 09/16 with STRAINER MILL OPERATOR - Shahriar Endorses she felt better Pain [...] history is provided by the patient. No erosion control specialist was used. Sore Throat This is a [...] Age of Onset Diabetes Father Cancer Sister DAY WORKER 36 Diabetes Maternal Grandfather Hypertension Maternal Grandfather [...] light. Cardiovascular: R (more content not included)... [facility] 09-16-2023 Note HNO ID: [id number] Author: Jose Daniel Bess APRN.ENGLISH COMPOSITION TEACHER Service: ? Author Type: Nurse Practitioner Type: Progress Notes Filed: 09/16/2023 8:30 AM Note Text: Chief Complaint Patient presents with: Follow Up: 09/14 pharyngitis, reports swallowing is painful HPI Quin Patiño is a 38 year old female who presents here today for Above Complaints. Quin is an established patient of Dr. Nella MD. She is a new patient to me today. Concerns today... [facility] care follow-up--- Was seen in express [...] Age of Onset Diabetes Father Cancer Sister DAY WORKER 36 Diabetes Maternal Grandfather Hypertension Maternal Grandfather [...] agreeable to treatment plan. Jose Daniel Bess APRN.ENGLISH COMPOSITION TEACHER [address] [place] [address] (more content not included)... [facility] 09-14-2023 Note HNO ID: [id number] Author: Karen Ash PA-C Service: ? Author Type: Physician Negative Assembler Type: Progress Notes Filed: 09/14/2023 12:03 PM [...] Age of Onset Diabetes Father Cancer Sister DAY WORKER 36 Diabetes Maternal Grandfather Hypertension Maternal Grandfather [...] STREP A MOLECULAR (POC) Karen Ash PA-C [facility] 04-01-2023 Miscellaneous Notes Order placed. Please assist with scheduling. Thank you Teetee Narayan APRN.ENGLISH COMPOSITION TEACHER Patient notified and requesting referral to Ortho. 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 If the naproxen is not helping the pain, then I would like her to see orthopedics. Thank you Teetee Narayan APRN.CNP documented in this encounter [facility] 03-29-2023 Note HNO ID: [id number] Author: RT Felisa(R) Service: Radiology Author Type: [...] RT Felisa(R) March 29, 2023 8:33 AM [facility] 03-26-2023 Note HNO ID: [id number] Author: Teetee Narayan APRN.CNP Service: ? Author [...] Age of Onset Diabetes Father Cancer Sister DAY WORKER 36 Diabetes Maternal Grandfather Hypertension Maternal Grandfather [...] or with pal (more content not included)... [facility] 03-26-2023 History of Presen t illness [...] Age of Onset Diabetes Father Cancer Sister DAY WORKER 36 Diabetes Maternal Grandfather Hypertension Maternal Grandfather [...] Teetee Narayan APRN.CNP documented in this encounter [facility] 01-26-2023 Miscellaneous Notes Phone call placed, [...] with primary care. documented in this encounter [facility] 01-24-2023 Note HNO ID: [id number] Author: ANNMARIE Griffith Service: ? Author Type: Physician Negative Assembler Type: Progress Notes Filed: 01/24/2023 1:56 PM Note Text: This note was created using [employer]. Subjective Quin Patiño is a 37 year [...] Age of Onset Diabetes Father Cancer Sister DAY WORKER 36 Diabetes Maternal Grandfather Hypertension Maternal Grandfather [...] detail warranting prompt ER evaluation. ANNMARIE Griffith [facility] 01-24-2023 History of Presen t illness [...] Age of Onset Diabetes Father Cancer Sister DAY WORKER 36 Diabetes Maternal Grandfather Hypertension Maternal Grandfather [...] evaluation. ANNMARIE Griffith documented in this encounter [facility] 09-29-2022 Instructions Stiven Penaloza - 09/29/2022 [...] are healing, please send your provider a [employer] message or call . documented in this encounter [facility] 09-29-2022 History of Presen t illness [...] Past Histories independently gathered by the clinical contracting support specialist and the remaining scribed note accurately describes my personal service to the patient. Elisabeth Hu MS, JOSE Procedure: shave biopsy Informed Consent Consent Obtained: Verbal [place] Protocol A moment to CARE was completed [...] completed when applicable documented in this encounter [facility] 04-01-2022 History of Presen t illness [...] Age of Onset Diabetes Father Cancer Sister DAY WORKER 36 Diabetes Maternal Grandfather Hypertension Maternal Grandfather [...] Teetee Narayan APRN.CNP documented in this encounter [facility] 02-25-2022 Miscellaneous Notes Patient notified and [...] Narayan APRN.CALIN \ documented in this encounter [facility] 06-03-2022 History of Presen t illness [...] within the past 3 months, goes to [facility] [place]. Quin Patiño is a 36 year old year [...] Age of Onset Diabetes Father Cancer Sister DAY WORKER 36 Diabetes Maternal Grandfather Hypertension Maternal Grandfather [...] diet of 1000 mg/day for under 50, 0617-7862 mg/day for 50+ - Discussed need and [...] Teetee Narayan APRN.CNP documented in this encounter [facility] 01-12-2022 Miscellaneous Notes Patient given results [...] Stephany Rice APRN.CNP documented in this encounter [facility] 01-11-2022 History of Presen t illness Narrative This note was created using [employer]. Subjective Quin Patiño is a 36 year [...] Age of Onset Diabetes Father Cancer Sister DAY WORKER 36 Diabetes Maternal Grandfather Hypertension Maternal Grandfather [...] Karen Ash PA-C documented in this encounter [facility] documented as of this encounter (statuses as of 01/11/2022) [facility] History of Past illness Narrative* Problem [...] uncertain viability 018 09/30/2017 Current [facility] with history of spontaneous during prior 08/30/2017 09/30/2017 Incomplete spontaneous without complica tion 11/16/2016 09/02/2017 Obesity, Class III, BMI 40-49.9 (morbid obesity) 04/18/2013 07/01/2018 Incomplete 03/21/2013 04/18/2013 Blighted ovum 03/13/2013 03/21/2013 documented as of this encounter (statuses as of 01/12/2022) [facility] History of Past illness Narrative* Problem [...] of this encounter (statuses as of 02/20/2022) [facility] History of Past illness Narrative* Problem [...] of this encounter (statuses as of 02/25/2022) [facility] History of Past illness Narrative* Problem [...] of this encounter (statuses as of 04/01/2022) [facility] History of Past illness Narrative* Problem [...] of this encounter (statuses as of 07/01/2022) [facility] History of Past illness Narrative* Problem [...] of this encounter (statuses as of 09/29/2022) [facility] History of Past illness Narrative* Problem [...] of this encounter (statuses as of 01/24/2023) [facility] History of Past illness Narrative* Problem [...] of this encounter (statuses as of 01/26/2023) [facility] History of Past illness Narrative* Problem [...] of this encounter (statuses as of 03/26/2023) [facility] History of Past illness Narrative* Problem [...] of this encounter (statuses as of 04/07/2023) [facility] Diagnosis Acute cystitis with hematuria- Primary Acute cystitis documented in this encounter [facility] Diagnosis Annual physical exam- Primary Routine general medical examination at a health care facility Prediabetes Other abnormal glucose Lipid screening Screening for lipoid disorders Benign mole Benign neoplasm of skin, site unspecified Snoring Other dyspnea and respiratory abnormality Intractable headache, unspecified chronicity pattern, unspecified headache type Vertigo Dizziness and giddiness documented in this encounter [facility] Diagnosis Anemia, unspecified type- Primary [facility] Diagnosis Vertigo- Primary Dizziness and giddiness Anemia, unspecified type documented [facility] this encounter [facility] Diagnosis Neoplasm of unspecified behavior of bone, soft tissue, and skin- Primary [facility] Diagnosis Urinary tract infection with hematuria, site unspecified- Primary Burning with urination Dysuria documented [facility] this [facility] Diagnosis Prediabetes- Primary Other abnormal [...] for lipoid disorders documented [facility] Diagnosis Bilateral hip pain- Primary Pain in joint, pelvic region and thigh Bilateral leg pain Pain in limb Tendinosis Unspecified disorder of synovium, tendon, and bursa documented in this encounter [facility]ative[facility] Diagnostic Procedure Only (Routine) - Pending Review Specialty Diagnoses / Procedures Referred By Contac t Referred To Contact XR IMAGING Diagnoses Bilateral hip pain Bilateral leg pain Chronic midline low back pain, unspecified whether sciatica present Procedures XR HIP BILATERAL 5V PEL/AP/LAT EACH HIP RADEX HIPS BILATERAL WITH PELVIS MINIMUM 5 VIEWS Teetee Narayan APRN.CNP [address] [place] [address] Xr Imaging Referral ID Status Reason Start Date Expiration Date Visits Requested Visits Authorized [id number] Pending Review Auto-Generat ed Referral 03/26/2023 04/24/2024 1 1 * Diagnostic Procedure Only (Routine) - Pending Review Specialty Diagnoses / Procedures Referred By Contac t Referred To Contact XR IMAGING Diagnoses Bilateral hip pain Bilateral leg pain Chronic midline low back pain, unspecified whether sciatica present Procedures XR LUMBAR GENERAL 3V AP/LAT/L5-S1 RADEX SPINE LUMBOSACRAL 2/3 VIEWS Teetee Narayan APRN.CNP [address] [place] [address] Xr Imaging Referral ID Status Reason Start Date Expiration Date Visits Requested Visits Authorized [id number] Pending Review Auto-Generat ed Referral 03/26/2023 04/24/2024 1 1 [facility] Summary Purpose Family History No Family History Records FoundNo Family History Records FoundNo Family History Records FoundNo Family History Records Found Advance Directives No Advanced Directives Records FoundDocuments on File Type Date Recorded Patient Certified Art Therapist Expl anation Advance Directive(s) 01/24/2019 11:54 AM Documents on File Type Date Recorded Patient Certified Art Therapist Expl anation Advance Directive(s) 01/24/2019 11:54 AM Hospital Course Note HNO ID: [id number] Author: Aaron Maki (Olaf Mcconnell Service: Obstetrics [...] (more content not included)... Note HNO ID: [id number] Author: Renee Fox Service: Gynecology Author Type: Physician Type: LANDD Delivery Note Filed: 01/25/2019 11:13 AM Note Text: OBSTETRICS - BRIEF OPERATIVE NOTE DELIVERY SUMMARY: Log ID: [id number] Surgery Date: 01/25/2019 Incision/Procedure Start Time: 10:03 [...] Diagnosis: Same as pre-op diagnosis Surgeon(s) and Negative Assembler(s): Surgeon(s) and Role: * Diamante Fox - Primary Physician Negative Assembler: Arturo Adhikari Procedures and Anesthesia: Procedure(s) and Anesthesia Type: * SECTION REPEAT - Spinal * LIGATION FALLOPIAN TUBE(S) W/ DELI (more content not included)... Procedure Findings Note HNO ID: [id number] Author: Renee Fox Service: Gynecology Author Type: Physician Type: LANDD Delivery Note Filed: 01/25/2019 11:13 AM Note Text: OBSTETRICS - BRIEF OPERATIVE NOTE DELIVERY SUMMARY: Log ID: [id number] Surgery Date: 01/25/2019 Incision/Procedure Start Time: 10:03 [...] Diagnosis: Same as pre-op diagnosis Surgeon(s) and Negative Assembler(s): Surgeon(s) and Role: * Diamante Fox - Primary Physician Negative Assembler: Arturo Adhikari Procedures and Anesthesia: Procedure(s) and Anesthesia Type: * SECTION REPEAT - Spinal * LIGATION FALLOPIAN TUBE(S) W/ DELI (more content not included)... Reason for Referral Specialty Diagnoses / Procedures Referred By Contac t Referred To Contact Dermatology Diagnoses Benign mole Procedures CONSULT TO DERMATOLOGY Teetee Narayan APRN.ENGLISH COMPOSITION TEACHER [address] [place] [address] Referral ID Status Reason Start Date Expiration Date Visits Requested Visits Authorized [id number] Ref Not Required PCP Requested Referral 02/20/2022 02/20/2023 1 1 Specialty Diagnoses / Procedures Referred By Contac t Referred To Contact Orthopedics Diagnoses Bilateral hip pain Bilateral leg pain Tendinosis Procedures CONSULT TO ORTHOPAEDICS OFFICE/OUTPATIENT NEW HIGH MDM 60-74 MINUTES Teetee Narayan APRN.ENGLISH COMPOSITION TEACHER [address] [place] [address] Referral ID Status Reason Start Date Expiration Date Visits Requested Visits Authorized [id number] Authorized PCP Requested Referral 04/01/2023 03/31/2024 1 1 Additional Source Comments INFORMATION SOURCE (unrecogn ized section and content) DATE CREATED AUTHOR AUTHOR'S ORGANIZ ATION 03/15/2018 [facility] DATE CREATED AUTHOR AUTHOR'S ORGANIZ ATION [facility] DATE CREATED AUTHOR AUTHOR'S ORGANIZ ATION 10/06/2023 [facility] Source Comments (unrecognize d section and content) In the event this informatio n is protected by the Federal Confidentiality of Alcohol and Drug Abuse Patient Records regulations: The Federal rules restrict any use of the information to criminally investigate or prosecute any alcohol or drug abuse patient.[facility] HospitalIn the event this information is protected by the Federal Confidentiality of Alcohol and Drug Abuse Patient Records regulations: The Federal rules restrict any use of the information to criminally investigate or prosecute any alcohol or drug abuse patient.[facility] HospitalIn the event this information is protected by the Federal Confidentiality of Alcohol and Drug Abuse Patient Records regulations: The Federal rules restrict any use of the information to criminally investigate or prosecute any alcohol or drug abuse patient.[facility] HospitalIn the event this information is protected by the Federal Confidentiality of Alcohol and Drug Abuse Patient Records regulations: The Federal rules restrict any use of the information to criminally investigate or prosecute any alcohol or drug abuse patient.[facility] HospitalIn the event this information is protected by the Federal Confidentiality of Alcohol and Drug Abuse Patient Records regulations: The Federal rules restrict any use of the information to criminally investigate or prosecute any alcohol or drug abuse patient.[facility] HospitalIn the event this information is protected by the Federal Confidentiality of Alcohol and Drug Abuse Patient Records regulations: The Federal rules restrict any use of the information to criminally investigate or prosecute any alcohol or drug abuse patient.[facility] HospitalIn the event this information is protected by the Federal Confidentiality of Alcohol and Drug Abuse Patient Records regulations: The Federal rules restrict any use of the information to criminally investigate or prosecute any alcohol or drug abuse patient.[facility] HospitalIn the event this information is protected by the Federal Confidentiality of Alcohol and Drug Abuse Patient Records regulations: The Federal rules restrict any use of the information to criminally investigate or prosecute any alcohol or drug abuse patient.[facility] HospitalIn the event this information is protected by the Federal Confidentiality of Alcohol and Drug Abuse Patient Records regulations: The Federal rules restrict any use of the information to criminally investigate or prosecute any alcohol or drug abuse patient.[facility] HospitalIn the event this information is protected by the Federal Confidentiality of Alcohol and Drug Abuse Patient Records regulations: The Federal rules restrict any use of the information to criminally investigate or prosecute any alcohol or drug abuse patient.[facility] HospitalIn the event this information is protected [...] Care Teams (unrecognized sec tion and content) Public Message Service Supervisor Relationship Specialty Start Date End Date Monae Carmen MD [address] [facility] [place] [address] PCP - General Internal Medicine 02/07/21 Public Message Service Supervisor Relationship Specialty Start Date End Date Monae Carmen MD [address] [facility] [place] [address] PCP - General Internal Medicine 02/07/21 Public Message Service Supervisor Relationship Specialty Start Date End Date Monae Carmen MD [address] [facility] [place] [address] PCP - General Internal Medicine 02/07/21 Public Message Service Supervisor Relationship Specialty Start Date End Date Monae Carmen MD [address] [facility] [place] [address] PCP - General Internal Medicine 02/07/21 Public Message Service Supervisor Relationship Specialty Start Date End Date Monae Carmen MD [address] [facility] [place] [address] PCP - General Internal Medicine 02/07/21 Public Message Service Supervisor Relationship Specialty Start Date End Date Monae Carmen MD [address] [facility] [place] [address] PCP - General Internal Medicine 02/07/21 FOR [...] THE PRIMARY CLINICAL RECORDS. [facility] [employer] [facility]. provides no warranty or guarantee of the accuracy or completeness of information in this document.
[2023-11-13] MEDS: AMOXICILLIN 500 MG CAPSULE PO (12:53)
[2023-11-13 12:57] VITALS: BP 129/76; PULSE 64; RESP 16; TEMP 36.4; O2SAT 99
== END 2023-11-13 12:58 | disposition home or self-care (01) ==
PROVIDERS: Emergency Provider Emergency Medicine; PCP Nurse Practitioner; Visit Provider Emergency Medicine
DX: J02.0 Streptococcal pharyngitis (principal); R51.9 Headache, unspecified; F17.210 Nicotine dependence, cigarettes, uncomplicated
CPT/HCPCS: 87651; 99282

== ENCOUNTER 2024-07-02 21:32 | Emergency (ER) | payer OTHER, SELFPAY ==
[2024-07-02 21:33] VITALS: BP 143/89; PULSE 82; RESP 16; TEMP 36.4; O2SAT 100; BMI 37.3
--- NOTE | 2024-07-02 21:51 | RAD_ITS ---
INDICATION: injury FELL 1 WEEK AGO ON CEMENT C/O RT ELBOW PAIN EXAMINATION/TECHNIQUE: X-RAY - RIGHT XR Elbow Min 3 Views COMPARISON: No relevant prior comparison study available FINDINGS: BONES: No definite fracture demonstrated. There is a tiny density adjacent to the distal humerus medial epicondyle, which may be an ossicle, avulsion fracture less likely. JOINTS: No dislocation. SOFT TISSUES: Unremarkable. RAD/Elbow min 3 Views IMPRESSION: No definite evidence of fracture. Tiny density adjacent to the medial epicondyle of the humerus likely ossicle, avulsion fracture less likely but is difficult to completely exclude. Correlate for focal symptoms at this site. Electronically Signed: Yoly Mancini MD at 22:46 EDT ,
--- NOTE | 2024-07-02 22:14 | EX.ED.UPPERE ---
HPI History of Present Illness Chief Complaint: Upper Extremity Injury Informant: patient and spouse/S.O. Narrative Narrative: Mechanical fall right elbow injury a week ago walking her dog. There is no swelling at that time. Did not get evaluated. Over last couple days noticed shooting pain down her arms. Also has been noting intermittent tingling to her fingers at times worse when she wakes up. 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 She is right-hand dominant. Denies history of similar. No other injuries. PFSH PFSH Medical History unable to obtain Home Medications ?Medication ?Instructions ?Recorded ?Last Taken ?Type amoxicillin 500 mg capsule 500 mg PO TID 10 days #30 caps 11/13/23 Unknown Rx ibuprofen 600 mg tablet 600 mg PO Q6H PRN PRN pain #20 07/02/24 Unknown Rx TABLETS Allergy/AdvReac Type Severity Reaction Status Date / Time No Known Allergies Allergy Verified 11/13/23 10:26 Social History Smoking Status: Current every day smoker tobacco type: cigarettes ROS ROS ED Constitutional Constitutional ED: Denies chills, fever(s) or sweats Eyes Eyes: Denies change in vision ENT ENT ED: Denies dysphagia or sore throat Cardiovascular Cardiovascular: Denies chest pain, leg edema, palpitations or racing heartbeat Respiratory/Chest Respiratory/Chest: Denies cough, dyspnea or dyspnea on exertion Gastrointestinal Gastrointestinal: Denies abdominal pain, diarrhea, nausea or vomiting Genitourinary Genitourinary ED: Denies dysuria, hematuria or urinary frequency Musculoskeletal Musculoskeletal: Reports extremity pain; Denies back pain or neck pain Integumentary Denies rash or wounds Neurologic Neurologic: Reports paresthesias; Denies headache(s) or weakness EXAM Physical Exam Const Vital Signs: 07/02/24 21:33 Temperature 97.5 F L Temperature Source Temporal Pulse Rate 82 Respiratory Rate 16 Blood Pressure 143/89 H Blood Pressure Mean 107 Pulse Ox 100 Oxygen Delivery Method Room Air Positive well nourished and well developed General Appearance ED: well developed and NAD HEENT Reports moist mucous membranes normocephalic and atraumatic Eyes EOMs intact bilaterally and conjunctivae normal General Eye ED: Yes normal appearance of both eyes Neck no lymphadenopathy and supple General: Negative for tenderness Chest Wall Chest: Negative for tenderness Resp normal respiratory effort and normal air movement Effort and Inspection: symmetric chest movement; Negative for respiratory distress Cardio regular rate, regular rhythm and no murmurs Peripheral Pulses: pulses 2+ throughout GI normal to inspection, nondistended, normoactive bowel sounds and non-tender Palpation: Negative for guarding or rebound tenderness present Back/Spine no CVA tenderness and no thoracic nor lumbar tenderness Extremity Extremity Narrative: Right upper extremity soft compartments no deformities. Tender palpation lateral epicondyle worse with pronation against resistance. Positive Tinel's at the cubital tunnel. Positive Phalen's on the right with paresthesias. There is no weakness to shoulder abduction and elbow flexion extension. Flexion and extension of her wrist were 5 out of 5. Handgrip is intact and 5 out of 5. General Extremety ED: Yes tenderness; Negative for edema General Extremity: Negative for edema Neuro oriented x3 and no sensory deficits noted Sensorium / Orientation: awake and alert Skin no rashes or lesions noted and no wounds MDM MDM MDM Narrative Medical decision making narrative: Interventions / MDM: Differential diagnosis: Cubital tunnel syndrome, lateral epicondylitis, carpal tunnel syndrome Diagnosis considered but do not suspect: Fracture however x-ray negative, no clinical compartment syndrome. My EKG interpretation: N/A Imaging independently reviewed and interpreted by myself: 3 view right elbow: No fracture or dislocation noted. Small accessory bone medial epicondyle. External documents reviewed: N/A Test considered but not ordered:N/A ED course: Exam with cubital tunnel syndrome lateral epicondylitis along with carpal tunnel syndrome. She had a fall landing on her elbow a week ago. Will check x-rays to rule out any fractures. Motrin ordered. X-ray negative for acute process. There is assessable medial epicondyle, no tenderness therefore low concerns for fracture. Robin wrap cock-up splint provided. She is given follow-up with Dr. Robin For outpatient evaluation. Re-evaluation: stable Disposition discussed with patient/family/significant other: Patient and significant other Case discussed with consulting clinician: N/A This note was generated with [employer] software. It may contain incorrect words, spelling, and punctuation that were not noted in checking the note before signing. Discharge Plan Triage Chief Complaint: Upper Extremity Injury ED Provider: Dewayne Reed Dx/Rx/DC Orders Clinical Impression: Epicondylitis, lateral, right, Cubital tunnel syndrome on right, Carpal tunnel syndrome of right wrist Instructions: What is Cubital Tunnel Syndrome?, Understanding Lateral Epicondylitis, ED Carpal Tunnel Syndrome Prescriptions: New ibuprofen 600 mg tablet 600 mg PO Q6H PRN PRN (Reason: pain) Qty: 20 0RF No Action amoxicillin 500 mg capsule 500 mg PO TID 10 Days Qty: 30 0RF Primary Care Provider: ELEANOR MADRID Referrals: Tiago Robin MD [Med Staff - Active Staff] - 1-2 Weeks ELEANOR MADRID NP-C [Primary Care Provider] - Activity Restrictions/Additional Instructions: X-ray negative. Use the Robin wrap use your wrist splint. Follow-up with Dr. Robin. Print Language: Hebrew Disposition Disposition: Home, Self Care Discharge Date/Time: 07/02/24 23:04
[2024-07-02 22:48] VITALS: BP 140/90; PULSE 69; RESP 18; TEMP 36.6; O2SAT 99
[2024-07-02] MEDS: Ibuprofen 600 MG Tablet PO (23:01)
== END 2024-07-02 23:04 | disposition home or self-care (01) ==
PROVIDERS: Emergency Provider Emergency Medicine; PCP Nurse Practitioner; Visit Provider Emergency Medicine
DX: M77.11 Lateral epicondylitis, right elbow (principal); G56.01 Carpal tunnel syndrome, right upper limb; G56.21 Lesion of ulnar nerve, right upper limb
CPT/HCPCS: 73080; 99283